=== PATIENT | male | born 1950 | race Caucasian/White ===

== ENCOUNTER 2017-02-01 08:34 | Emergency (ER) | payer OTHER ==
[2017-02-01] MEDS ORDERED: DIPH,PERTUS(ACELL)TETVAC-LF 0.5 ML VIAL IM ONE (08:43)
[2017-02-01] MEDS ORDERED: HYDROcodone/APAP 10-325MG 1 EACH TAB PO ONE (08:46)
[2017-02-01] MEDS ORDERED: ceFAZolin 1,000 MG VIAL IM STA (08:47)
--- NOTE | 2017-02-01 08:49 | ED ---
Wound/Laceration HPI - General Chief Complaint: Wound/Laceration Stated Complaint: laceration left hand Time Seen by Provider: 02/01/17 08:41 Source: patient, RN notes reviewed, old records reviewed Mode of arrival: ambulatory Limitations: no limitations - History of Present Illness Initial Comments: Is a 66-year-old male with chief complaint of laceration over his left second and third distal finger. Patient reports that he cut it on a table saw. Patient reports the second finger as above in evidence of involvement of the nailbed. Patient reports that the third finger just has the pad of the finger cut. Patient reports that he does not know the status of his tetanus vaccine. Denies any decreased range of motion of the fingers but has severe pain in his fingertips. Patient denies any recent fever, chills, shortness of breath, chest pain, back pain, abdominal pain, nausea vomiting, numbness or tingling, dysuria or hematuria, constipation or diarrhea, headaches or visual changes, or any other current symptoms - Related Data Home Medications Medication Instructions Recorded Confirmed Finasteride [Proscar] 5 mg PO DAILY 02/01/17 02/01/17 Vits A,C,E/Lutein/Minerals 1 tab PO DAILY 02/01/17 02/01/17 [Ocuvite with Lutein Tablet] Previous Rx's Medication Instructions Recorded Cephalexin [Keflex] 500 mg PO Q6H #40 cap 02/01/17 HYDROcodone/APAP 10-325MG [[facility] 1 tab PO Q6H PRN #20 tab 02/01/17 10-325] Allergies Allergy/AdvReac Type Severity Reaction Status Date / Time No Known Allergies Allergy Verified 02/01/17 09:30 Review of Systems ROS Statement: Those systems with pertinent positive or pertinent negative responses have been documented in the HPI. ROS Other: All systems not noted in ROS Statement are negative. Past Medical History Past Medical History: Prostate Disorder History of Any Multi-Drug Resistant Organisms: None Reported Past Surgical History: Orthopedic Surgery Additional Past Surgical History / Comment(s): Back surgery Past Psychological History: No Psychological Hx Reported Smoking Status: Never smoker Past Alcohol Use History: None Reported Past Drug Use History: None Reported General Exam - General Exam Comments Initial Comments: This is a 66-year-old male. No acute distress. Limitations: no limitations General appearance: alert, in no apparent distress Head exam: Present: atraumatic, normocephalic, normal inspection Eye exam: Present: normal appearance, PERRL, EOMI. Absent: scleral icterus, conjunctival injection, periorbital swelling ENT exam: Present: normal exam, mucous membranes moist Neck exam: Present: normal inspection. Absent: tenderness, meningismus, lymphadenopathy Respiratory exam: Present: normal lung sounds bilaterally. Absent: respiratory distress, wheezes, rales, rhonchi, stridor Cardiovascular Exam: Present: regular rate, normal rhythm, normal heart sounds. Absent: systolic murmur, diastolic murmur, rubs, gallop, clicks GI/Abdominal exam: Present: soft, normal bowel sounds. Absent: distended, tenderness, guarding, rebound, rigid Extremities exam: Present: full ROM, normal capillary refill. Absent: normal inspection, tenderness, pedal edema, joint swelling, calf tenderness Left Hand Wrist exam: Present: laceration (Laceration over the second and third fingertips. Second finger does have evidence of nail bed involvement. Third finger has a laceration over the finger pad. Nail bed is intact.). Absent: normal inspection Hand L/R Front: 1 - laceration (2 cm laceration) Hand L/R Back: 1 - 2cm laceration Neuro motor exam: Present: wrist extension intact, thumb opposition intact, thumb IP flexion intact, thumb adduction intact, fingers 2-5 abduction intact Vascular: Present: normal capillary refill Back exam: Present: normal inspection Neurological exam: Present: alert, oriented X3, CN II-XII intact Psychiatric exam: Present: normal affect, normal mood Course Vital Signs 02/01/17 02/01/17 08:34 10:40 Temperature 97.0 F L 97.8 F Pulse Rate 75 78 Respiratory 20 16 Rate Blood Pressure 176/83 137/70 O2 Sat by Pulse 96 98 Oximetry Procedures - Laceration Laceration #1 Site: hand (2nd digit) Size (cm): 4 Description: flap Depth: involves muscle layer Anesthetic Used: lidocaine 1% Anesthesia Technique: nerve block Amount (mls): 5 Pre-repair: wound explored, irrigated extensively Type of Sutures: nylon Size of Sutures: 5-0 Number of Sutures: 10 Technique: simple, interrupted Patient Tolerated Procedure: well, no complications Medical Decision Making - Medical Decision Making This 66-year-old male chief complaint of left second and third finger laceration after his hand was caught in a table saw. Open left second digit fracture, Comminuted overall nondisplaced fracture of the distal tuft with of the third digit overlying soft tissue swelling multiple high-density fragments which are related to comminuted osseous fragments of foreign bodies. Patient is given sutures through both the second and third digits. There is evidence of nail bed involvement, however patient did not have the nail bed removed. Discussed this could lead to further infection however patient continued to adamantly wants the nailbed. Discussed that he is follow-up with orthopedic hand surgeon. Patient will be started on Keflex as well. Up-to- date on tetanus vaccination. Discussed close return parameters. - Radiology Data Radiology results: report reviewed Absence of the distal soft tissues and second digit. Overlying soft tissue swelling. Absence of radial volar aspect of the distal second tuft with multiple fragments that may relate osseous comminuted fragments or foreign body. Comminuted overall not listless fracture distal tuft of the third digit with overlying soft tissue swelling and multiple high-density fragments which may relate to a comminuted osseous fragments or foreign bodies. Mild osteoarthritic of the left hand. Disposition Clinical Impression: Fracture of distal phalanx of finger, open Disposition: HOME SELF-CARE Condition: Good Instructions: Finger Fracture (ED) Additional Instructions: Advised to follow-up with orthopedic hand specialist within the next 1-2 days. Patient needs to keep the gauze dressing on until seen by shredding specialist. Return to the emergency department if any alarming signs or symptoms occur. Take your pain medication and antibiotics as directed. Prescriptions: Cephalexin [Keflex] 500 mg PO Q6H #40 cap HYDROcodone/APAP 10-325MG [[facility] 10-325] 1 tab PO Q6H PRN #20 tab PRN Reason: Pain Referrals: None,Stated [Primary Care Provider] - 1-2 days Heithoff,Reece J, DO [Doctor of Osteopathic Medicine] - 1-2 days Time of Disposition: 10:33
--- NOTE | 2017-02-01 09:11 | XR ---
EXAMINATION TYPE: XR hand complete LT DATE OF EXAM: 02/01/2017 CLINICAL HISTORY: Laceration to the distal second and third finger from a table saw TECHNIQUE: Frontal, lateral and oblique images of the left hand are obtained. COMPARISON: None. FINDINGS: Soft tissue lacerations of the distal second and third fingers are appreciated with associa gerardo soft tissue swelling and subcutis emphysema. Additionally there is absence of the distal soft tis sues and volar, radial aspect of the second tuft with comminuted fragments remaining. Fracture deform ity of the distal third tuft is seen, which is overall nondisplaced. Radiopaque foreign body is diffi cult to evaluate as there are multiple high-density fragments surrounding the daisy which may relate to osseous fragments are foreign bodies. Mild joint space narrowing and sclerosis is seen at the firs t metacarpal phalangeal joint as well as the distal interphalangeal joints compatible with mild arthr opathy. No additional fracture. IMPRESSION: 1. Absence of the distal soft tissues of the second digit, overlying soft tissue swelling, and absenc e of the radial and volar aspect of the distal second tuft with multiple fragments that may relate to osseous comminuted fragments or foreign body. 2. Comminuted overall nondisplaced fracture of the distal tuft of the third digit with overlying soft tissue swelling and multiple high-density fragments which may relate to comminuted osseous fragments or foreign bodies. 3. Mild osteoarthritic of the of the left hand.
[2017-02-01] MEDS ORDERED: GELATIN SPONGE,ABSORB (SMALL) 1 EACH SPONGE TOPICAL STA (09:49)
[2017-02-01] MEDS ORDERED: LORazepam 1 MG TAB PO STA (09:49)
[2017-02-01 10:42] VITALS: BP 137/70; PULSE 78; RESP 16; TEMP 97.8
== END 2017-02-01 10:40 | disposition home or self-care (01) ==
LOC: EC 08:34
DX: S62.663B Nondisplaced fracture of distal phalanx of left middle finger, initial encounter for open fracture (principal); S62.661B Nondisplaced fracture of distal phalanx of left index finger, initial encounter for open fracture; Z79.890 Hormone replacement therapy; Z98.890 Other specified postprocedural states; Z23 Encounter for immunization; W31.2XXA Contact with powered woodworking and forming machines, initial encounter
CPT/HCPCS: 73130; 90715; 99283; 96372; 90471; J0690

== ENCOUNTER 2017-05-27 13:48 | Observation (INO) | payer OTHER ==
[2017-05-27] MEDS ORDERED: SODIUM CHLORIDE 0.9% 1,000 ML IV STA (13:54)
[2017-05-27] MEDS ORDERED: ASPIRIN 81 MG PO STA (13:54)
[2017-05-27] MEDS ORDERED: NITROGLYCERIN SL TABS 0.4 MG TAB SUBLINGUAL PRN (13:54)
[2017-05-27] MEDS ORDERED: MORPHINE SULFATE 5 MG/ML SYRINGE IV STA (13:54)
--- NOTE | 2017-05-27 14:05 | ED ---
General Adult HPI - General Chief complaint: Chest Pain Stated complaint: Chest pressure Time Seen by Provider: 05/27/17 13:54 Source: patient, RN notes reviewed, old records reviewed Mode of arrival: wheelchair Limitations: no limitations - History of Present Illness Initial comments: This is a 66-year-old male to the ER for evaluation today. Patient is denying any evaluation in regards to chest pain. Patient does have positive history of heart disease cardiovascular chest pain spasm rating to left shoulder and down across her chest. No diaphoresis no shortness of breath. Patient was just discharged yesterday. No fevers cough or congestion - Related Data Home Medications Medication Instructions Recorded Confirmed Finasteride [Proscar] 5 mg PO DAILY 02/01/17 05/27/17 Lutein 20 mg PO DAILY 05/24/17 05/27/17 Aspirin EC [Ecotrin] 325 mg PO DAILY 05/28/17 05/28/17 Atorvastatin Calcium [Lipitor] 80 mg PO DAILY 05/28/17 05/28/17 Metoprolol Tartrate [Lopressor] 25 mg PO BID 05/28/17 05/28/17 Nitroglycerin Sl Tabs [Nitrostat] 0.4 mg SL CONTINUOUS PRN 05/28/17 05/28/17 Prasugrel [Effient] 10 mg PO Q24HR 05/28/17 05/28/17 Allergies Allergy/AdvReac Type Severity Reaction Status Date / Time No Known Allergies Allergy Verified 05/27/17 13:59 Review of Systems ROS Statement: Those systems with pertinent positive or pertinent negative responses have been documented in the HPI. ROS Other: All systems not noted in ROS Statement are negative. Past Medical History Past Medical History: Cancer, Eye Disorder, Myocardial Infarction ([place]), Prostate Disorder Additional Past Medical History / Comment(s): Basal cell skin cancer with removals, beginnings of bilateral macular degeneration, occasional vertigo, lactose intolerant, R inguinal pain when lying flat. History of Any Multi-Drug Resistant Organisms: None Reported Past Surgical History: Heart Catheterization With Stent, Orthopedic Surgery Additional Past Surgical History / Comment(s): Lumbar spine surgery, colonoscopy /benign polypectomy, R inguinal hernia repair, skin cancer removals. Past Anesthesia/Blood Transfusion Reactions: No Reported Reaction Past Psychological History: No Psychological Hx Reported Smoking Status: Never smoker - Past Family History Mother Family Medical History: No Reported History Additional Family Medical History / Comment(s): Mother is healthy and 90yrs old. Father Additional Family Medical History / Comment(s): Father around age 55-65 with ruptured brain aneurysm. General Exam Limitations: no limitations General appearance: alert, in no apparent distress Head exam: Present: atraumatic, normocephalic, normal inspection Eye exam: Present: normal appearance, PERRL, EOMI. Absent: scleral icterus, conjunctival injection, periorbital swelling ENT exam: Present: normal exam, mucous membranes moist Neck exam: Present: normal inspection. Absent: tenderness, meningismus, lymphadenopathy Respiratory exam: Present: normal lung sounds bilaterally. Absent: respiratory distress, wheezes, rales, rhonchi, stridor Cardiovascular Exam: Present: regular rate, normal rhythm, normal heart sounds. Absent: systolic murmur, diastolic murmur, rubs, gallop, clicks GI/Abdominal exam: Present: soft, normal bowel sounds. Absent: distended, tenderness, guarding, rebound, rigid Extremities exam: Present: normal inspection, full ROM, normal capillary refill. Absent: tenderness, pedal edema, joint swelling, calf tenderness Back exam: Present: normal inspection Neurological exam: Present: alert, oriented X3, CN II-XII intact Psychiatric exam: Present: normal affect, normal mood Skin exam: Present: warm, dry, intact, normal color. Absent: rash Course Vital Signs 05/27/17 05/27/17 05/27/17 13:50 14:16 15:04 Temperature 97.3 F L Pulse Rate 59 L 55 L 50 L Respiratory 18 18 18 Rate Blood Pressure 123/67 137/86 126/74 O2 Sat by Pulse 99 98 97 Oximetry 05/27/17 15:50 Temperature 97.9 F Pulse Rate 55 L Respiratory 18 Rate Blood Pressure 154/93 O2 Sat by Pulse 98 Oximetry - Reevaluation(s) Reevaluation #1: 05/27/17 15:57 Patient states he has no significant pain Reevaluation #2: 05/27/17 15:57 Patient discussed at length pros and cons of staying hospital course going home , patient is informed, able to make decision, I'll alert and oriented 3. EKG Findings - EKG Comments: EKG Findings:: EKG shows normal sinus rhythm rate of 60, ME 170, QRS 96, QTc 422 Medical Decision Making - Medical Decision Making 66 male to the ER with recurrent chest pain after recent AR with stent. At this point patient states that he doesn't want to stay nostril for computed tenet evaluation. Patient be admitted for cardiac observation, monitoring and serial troponins - Lab Data Result diagrams: 05/28/17 05:53 05/28/17 05:53 - Radiology Data Radiology results: report reviewed (Chest x-ray is negative), image reviewed Critical Care Time Critical Care Time: Yes Total Critical Care Time: 31 Disposition Clinical Impression: Chest pain, NSTEMI (non-ST elevated myocardial infarction) Disposition: ADMITTED IP TO THIS HOSP Condition: Fair
[2017-05-27 14:30] LABS: Basophils # (A) 0.1 k/uL (0-0.2); Basophils % (A) 1 %; CH 28.9; CHCM 32.9; Eosinophils # (A) 0.3 k/uL (0-0.7); Eosinophils % (A) 2 %; HDW 2.58; HGB 15.3 gm/dL (13.0-17.5); Luc # (Auto) 0.16; Luc % (Auto) 2; Lymphocytes # (A) 2.3 k/uL (1.0-4.8); Lymphocytes % (A) 21 %; MCH 28.7 pg (25.0-35.0); MCHC 32.5 g/dL (31.0-37.0); MCV 88.3 fL (80.0-100.0); Mean Platelet Volume 10.1; Monocytes # (A) 0.7 k/uL (0-1.0); Monocytes % (A) 6 %; Neutrophils # (A) 7.2 k/uL (1.3-7.7); Neutrophils % (A) 68 %; RBC 5.32 m/uL (4.30-5.90); RDW 14.7 % (11.5-15.5); WBC 10.6 k/uL (3.8-10.6); WBC (Perox) 10.49
--- NOTE | 2017-05-27 14:46 | XR ---
EXAMINATION TYPE: XR chest 2V DATE OF EXAM: 05/27/2017 COMPARISON: May 24, 2017 HISTORY: Chest pain TECHNIQUE: Frontal and lateral views of the chest are obtained. FINDINGS: There is no focal air space opacity, pleural effusion, or pneumothorax seen. The cardiac silhouette size is within normal limits. The osseous structures are intact. IMPRESSION: No acute cardiopulmonary process.
[2017-05-27 14:53] LABS: ALT 37 U/L (21-72); AST 93 U/L (17-59); Alkaline Phosphatase 78 U/L (38-126); Anion Gap 11 mmol/L; Blood Urea Nitrogen 19 mg/dL (9-20); Calcium 9.4 mg/dL (8.4-10.2); Carbon Dioxide 24 mmol/L (22-30); Chloride 104 mmol/L (98-107); Glucose 108 mg/dL (74-99); Magnesium 2.2 mg/dL (1.6-2.3); Non-African American GFR(MDRD) >60 (>60 ml/min/1.73 sqM); Sodium 139 mmol/L (137-145); Total Bilirubin 1.3 mg/dL (0.2-1.3); Total Protein 7.8 g/dL (6.3-8.2)
[2017-05-27 14:56] LABS: Potassium 6.3 mmol/L (3.5-5.1)
[2017-05-27 15:10] LABS: Prothrombin Time 10.1 sec (9.0-12.0)
[2017-05-27 15:19] LABS: Creatine Kinase MB 1.1 ng/mL (0.0-2.4)
[2017-05-27 15:20] LABS: Troponin I 4.89 ng/mL (0.000-0.034)
[2017-05-27] MEDS ORDERED: SODIUM POLYSTYRENE SULFONATE 15 GM/60 ML BOTTLE PO STA (15:38)
[2017-05-27 18:25] VITALS: RESP 16; BMI 21.5
[2017-05-27] MEDS: METOPROLOL TARTRATE 25 MG TAB PO SCH (20:09)
[2017-05-27 21:09] LABS: Troponin I 4.6 ng/mL (0.000-0.034)
[2017-05-28 03:19] LABS: Cholesterol 208 mg/dL (<200); HDL Cholesterol 36 mg/dL (40-60)
[2017-05-28 03:35] LABS: Creatine Kinase MB 0.8 ng/mL (0.0-2.4)
[2017-05-28 03:36] LABS: Troponin I 5.59 ng/mL (0.000-0.034)
[2017-05-28 06:32] LABS: Basophils # (A) 0.1 k/uL (0-0.2); Basophils % (A) 1 %; CH 29.3; CHCM 33.9; Eosinophils # (A) 0.2 k/uL (0-0.7); Eosinophils % (A) 2 %; HCT 42.7 % (39.0-53.0); HDW 2.79; HGB 14.1 gm/dL (13.0-17.5); Luc # (Auto) 0.14; Luc % (Auto) 2; Lymphocytes # (A) 1.9 k/uL (1.0-4.8); Lymphocytes % (A) 20 %; MCH 28.6 pg (25.0-35.0); MCHC 32.9 g/dL (31.0-37.0); MCV 86.9 fL (80.0-100.0); Mean Platelet Volume 9.3; Monocytes # (A) 0.5 k/uL (0-1.0); Monocytes % (A) 5 %; Neutrophils # (A) 6.9 k/uL (1.3-7.7); Neutrophils % (A) 71 %; RBC 4.91 m/uL (4.30-5.90); RDW 12.9 % (11.5-15.5); WBC 9.7 k/uL (3.8-10.6); WBC (Perox) 9.92
[2017-05-28 06:43] LABS: Anion Gap 8 mmol/L; Blood Urea Nitrogen 16 mg/dL (9-20); Carbon Dioxide 26 mmol/L (22-30); Chloride 109 mmol/L (98-107); Glucose 90 mg/dL (74-99); Non-African American GFR(MDRD) >60 (>60 ml/min/1.73 sqM); Potassium 4.3 mmol/L (3.5-5.1); Sodium 143 mmol/L (137-145)
[2017-05-28] MEDS: METOPROLOL TARTRATE 25 MG TAB PO SCH (08:43)
[2017-05-28] MEDS ORDERED: PRASUGREL 10 MG TAB PO SCH (09:00)
[2017-05-28] MEDS ORDERED: ASPIRIN 325 MG TAB PO SCH (09:00)
[2017-05-28] MEDS ORDERED: ATORVASTATIN 80 MG TAB PO SCH (09:00)
[2017-05-28] MEDS ORDERED: FINASTERIDE 5 MG TAB PO SCH (09:00)
[2017-05-28] MEDS ORDERED: ASPIRIN 81 MG PO SCH (09:00)
[2017-05-28] MEDS ORDERED: VIT A,C & E-LUTEIN-MINERALS 1 EACH TAB PO SCH (12:00)
--- NOTE | 2017-05-28 13:21 | P.HPIM ---
History of Present Illness H&P Date: 05/28/17 Chief Complaint: Chest pain This is a 66-year-old gentleman with past medical history noted below who was recently discharged from the hospital couple of days ago after being treated for non-ST elevation [place] and underwent left heart catheterization and stent placement to the circumflex. Patient said that he was doing well up until yesterday when he started having chest discomfort in the left chest. He said that the pain was nonexertional. He was in the left chest and going to the middle chest. No other radiation. He rated as 5 out of 10 in severity. This pain was not associated with shortness of breath, dizziness, or diaphoresis. Patient presented to the emergency room and 12-lead EKG showed no acute ischemic changes. Troponin was elevated but was significantly lower than his last troponin 2 days ago upon discharge. Patient chest pain resolved. He was seen and evaluated by cardiology. His pain was thought to be atypical in nature. No further testing recommended. Patient was cleared by cardiology to be discharged home. We will continue medical management. Please refer to the discharge medication list for further details. Review of Systems Review of system: 14 points review of systems were obtained and were negative except to what were mentioned in the HPI. Past Medical History Past Medical History: Cancer, Eye Disorder, Myocardial Infarction ([place]), Prostate Disorder Additional Past Medical History / Comment(s): Basal cell skin cancer with removals, beginnings of bilateral macular degeneration, occasional vertigo, lactose intolerant, R inguinal pain when lying flat. Last Myocardial Infarction Date:: 05-24 History of Any Multi-Drug Resistant Organisms: None Reported Past Surgical History: Heart Catheterization With Stent, Orthopedic Surgery Additional Past Surgical History / Comment(s): Lumbar spine surgery, colonoscopy /benign polypectomy, R inguinal hernia repair, skin cancer removals. Past Anesthesia/Blood Transfusion Reactions: No Reported Reaction Date of Last Stent Placement:: 05-24 Past Psychological History: No Psychological Hx Reported Additional Psychological History / Comment(s): Pt resides with significant other , Angeline. He is independent. Smoking Status: Never smoker Past Alcohol Use History: Rare Past Drug Use History: None Reported - Past Family History Mother Family Medical History: No Reported History Additional Family Medical History / Comment(s): Mother is healthy and 90yrs old. Father Additional Family Medical History / Comment(s): Father around age 55-65 with ruptured brain aneurysm. Medications and Allergies Home Medications Medication Instructions Recorded Confirmed Type Finasteride [Proscar] 5 mg PO DAILY 02/01/17 05/27/17 History Lutein 20 mg PO DAILY 05/24/17 05/27/17 History Aspirin EC [Ecotrin] 325 mg PO DAILY 05/28/17 05/28/17 History Atorvastatin Calcium [Lipitor] 80 mg PO DAILY 05/28/17 05/28/17 History Metoprolol Tartrate [Lopressor] 25 mg PO BID 05/28/17 05/28/17 History Nitroglycerin Sl Tabs [Nitrostat] 0.4 mg SL CONTINUOUS PRN 05/28/17 05/28/17 History Prasugrel [Effient] 10 mg PO Q24HR 05/28/17 05/28/17 History Allergies Allergy/AdvReac Type Severity Reaction Status Date / Time No Known Allergies Allergy Verified 05/27/17 13:59 Physical Exam Vitals: Vital Signs Temp Pulse Pulse Resp BP BP Pulse Ox 05/28/17 08:04 96 05/28/17 08:00 54 L 16 05/28/17 07:56 97 F L 54 L 16 124/76 98 05/28/17 04:00 97.6 F 57 L 16 117/70 96 05/28/17 00:00 97.9 F 53 L 16 129/73 99 05/27/17 20:00 97.7 F 53 L 16 126/69 96 05/27/17 16:39 97.8 F 60 16 122/77 98 05/27/17 15:50 97.9 F 55 L 18 154/93 98 05/27/17 15:04 50 L 18 126/74 97 05/27/17 14:16 55 L 18 137/86 98 05/27/17 13:50 97.3 F L 59 L 18 123/67 99 Intake and Output 05/27/17 05/28/17 05/28/17 22:59 06:59 14:59 Intake Total 240 800 Output Total 250 Balance 240 800 -250 Intake: Intake, IV Titration 800 Amount Sodium Chloride 0.9% 1, 800 000 ml @ 100 mls/hr IV . Q10H STA Rx#:[id number] Oral 240 Output: Urine 250 Other: Voiding Method Toilet Toilet Toilet Urinal Urinal Urinal Weight 72 kg 72.4 kg General: The patient is awake and alert, in no distress Eye: there is normal conjunctiva bilaterally. Neck: The neck is supple, there is no JVD. Cardiovascular: Normal S1-S2, no S3-S4, no murmurs. Respiratory: Lungs clear to auscultation bilaterally Gastrointestinal: Abdomen is soft, nontender Musculoskeletal: There is no pedal edema. Neurological:. Speech is normal. Skin: Skin is warm and dry Results CBC & Chem 7: 05/28/17 05:53 05/28/17 05:53 Labs: Abnormal Lab Results - Last 24 Hours (Table) 05/27/17 05/27/17 05/27/17 Range/Units 14:09 14:09 14:09 Plt Count (150-450) k/uL APTT 21.0 L (22.0-30.0) sec Potassium 6.3 H* (3.5-5.1) mmol/L Chloride (98-107) mmol/L Glucose 108 H (74-99) mg/dL AST 93 H (17-59) U/L Troponin I 4.890 H* (0.000-0.034) ng/mL Triglycerides (<150) mg/dL Cholesterol (<200) mg/dL LDL Cholesterol, Calc (0-99) mg/dL HDL Cholesterol (40-60) mg/dL 05/27/17 05/28/17 05/28/17 Range/Units 19:57 02:42 02:42 Plt Count (150-450) k/uL APTT (22.0-30.0) sec Potassium (3.5-5.1) mmol/L Chloride (98-107) mmol/L Glucose (74-99) mg/dL AST (17-59) U/L Troponin I 4.600 H* 5.590 H* (0.000-0.034) ng/mL Triglycerides 166 H (<150) mg/dL Cholesterol 208 H (<200) mg/dL LDL Cholesterol, Calc 139 H (0-99) mg/dL HDL Cholesterol 36 L (40-60) mg/dL 05/28/17 05/28/17 05/28/17 Range/Units 05:53 05:53 10:32 Plt Count 148 L (150-450) k/uL APTT (22.0-30.0) sec Potassium (3.5-5.1) mmol/L Chloride 109 H (98-107) mmol/L Glucose (74-99) mg/dL AST (17-59) U/L Troponin I 3.270 H* (0.000-0.034) ng/mL Triglycerides (<150) mg/dL Cholesterol (<200) mg/dL LDL Cholesterol, Calc (0-99) mg/dL HDL Cholesterol (40-60) mg/dL Thrombosis Risk Factor Assmnt - Choose All That Apply Any of the Below Risk Factors Present?: Yes Other Risk Factors: Yes Each Risk Factor Represents 2 Points: Age 61-74 years Thrombosis Risk Factor Assessment Total Risk Factor Score: 2 Thrombosis Risk Factor Assessment Level: Low Risk Assessment and Plan Assessment: This is a 66-year-old gentleman with past medical history noted below who was recently discharged from the hospital couple of days ago after being treated for non-ST elevation [place] and underwent left heart catheterization and stent placement to the circumflex. Patient said that he was doing well up until yesterday when he started having chest discomfort in the left chest. He said that the pain was nonexertional. He was in the left chest and going to the middle chest. No other radiation. He rated as 5 out of 10 in severity. This pain was not associated with shortness of breath, dizziness, or diaphoresis. Patient presented to the emergency room and 12-lead EKG showed no acute ischemic changes. Troponin was elevated but was significantly lower than his last troponin 2 days ago upon discharge. Patient chest pain resolved. He was seen and evaluated by cardiology. His pain was thought to be atypical in nature. No further testing recommended. Patient was cleared by cardiology to be discharged home. We will continue medical management. Please refer to the discharge medication list for further details. 1. Recent non-ST elevation [place] 2. Atypical chest pain on this presentation cleared by cardiology for discharge 3. Coronary artery disease status post stent placement to the circumflex 4. Mixed hyperlipidemia maintained on Lipitor 80 mg at bedtime 5. Essential hypertension: Blood pressure well-controlled
--- NOTE | 2017-05-28 13:22 | P.DS ---
Providers Date of admission: 05/27/17 13:54 Expected date of discharge: 05/28/17 Attending physician: Geneva Rader Consults: 05/27/17 13:54 Consult Physician Urgent Consulting Provider: Trevor Morrison Consult Reason/Comments: cp Do you want consulting provider notified?: Yes Primary care physician: [facility] Course: This is a 66-year-old gentleman with past medical history noted below who was recently discharged from the hospital couple of days ago after being treated for non-ST elevation [place] and underwent left heart catheterization and stent placement to the circumflex. Patient said that he was doing well up until yesterday when he started having chest discomfort in the left chest. He said that the pain was nonexertional. He was in the left chest and going to the middle chest. No other radiation. He rated as 5 out of 10 in severity. This pain was not associated with shortness of breath, dizziness, or diaphoresis. Patient presented to the emergency room and 12-lead EKG showed no acute ischemic changes. Troponin was elevated but was significantly lower than his last troponin 2 days ago upon discharge. Patient chest pain resolved. He was seen and evaluated by cardiology. His pain was thought to be atypical in nature. No further testing recommended. Patient was cleared by cardiology to be discharged home. We will continue medical management. Please refer to the discharge medication list for further details. Patient Condition at Discharge: Fair Plan - Discharge Summary Discharge Rx Participant: No New Discharge Prescriptions: No Action Finasteride [Proscar] 5 mg PO DAILY Lutein 20 mg PO DAILY Metoprolol Tartrate [Lopressor] 25 mg PO BID Prasugrel [Effient] 10 mg PO Q24HR Nitroglycerin Sl Tabs [Nitrostat] 0.4 mg SL CONTINUOUS PRN PRN Reason: Chest Pain Atorvastatin Calcium [Lipitor] 80 mg PO DAILY Aspirin EC [Ecotrin] 325 mg PO DAILY Discharge Medication List Finasteride [Proscar] 5 mg PO DAILY 02/01/17 [History] Lutein 20 mg PO DAILY 05/24/17 [History] Aspirin EC [Ecotrin] 325 mg PO DAILY 05/28/17 [History] Atorvastatin Calcium [Lipitor] 80 mg PO DAILY 05/28/17 [History] Metoprolol Tartrate [Lopressor] 25 mg PO BID 05/28/17 [History] Nitroglycerin Sl Tabs [Nitrostat] 0.4 mg SL CONTINUOUS PRN 05/28/17 [History] Prasugrel [Effient] 10 mg PO Q24HR 05/28/17 [History] Follow up Appointment(s)/Referral(s): Fransisco Shah MD [Primary Care Provider] - 1-2 days Discharge Disposition: HOME SELF-CARE
[2017-05-28 13:39] VITALS: BP 131/64; PULSE 53; TEMP 98.3
--- NOTE | 2017-05-28 18:13 | CONS ---
CONSULTATION This is a 66-year-old gentleman who presented with a non-ST elevation ID about 5 days ago. He underwent stenting of a mid circumflex lesion which was a fairly tight stenosis. He also has a moderate disease in mid and distal LAD and LAD is a wrap- around vessel that supplies the inferior wall as well. The first obtuse marginal was also stenosed but was advised but he was advised that we would pursue management with medical therapy for this. Mid circumflex had an excellent angiographic result and the procedure was performed on the of this month. Upon his presentation to the hospital, his peak troponin was about 34. Postprocedure course was uneventful. He went home and he yesterday he went to the [employer] to get a pill box, had some sharp pain in the left lateral aspect of the chest, felt a bit concerned. Pain was very atypical. Took 3 nitros, felt queasy, clammy, and abdominal discomfort and came into the hospital. It appears the pain was atypical and sublingual nitroglycerin may have contributed to his symptoms of lightheadedness and clammy feeling. His troponin profile suggests that there is no significant re-elevation. The troponin is in the range of 5. but this is still within the 10 day window suggesting that the numbers are actually coming down overall. Patient has not had any further symptoms, is resting comfortably without symptoms. I reviewed his angiograms and I noted that the LAD lesion is not critical and no immediate intervention is necessary. His circumflex results were excellent. The RCA is not a significant vessel. PAST MEDICAL HISTORY: 1. Recent hospitalization for non ST elevation ID and stenting of circumflex. 2. History of benign prostatic hypertrophy. 3. Hypertension. 4. Hyperlipidemia. ALLERGIES: None. MEDICATIONS: At home include aspirin 325 mg daily, Effient 10 mg daily, atorvastatin 80 mg daily, Proscar 5 mg daily, sublingual nitroglycerin p.r.n. EXAMINATION: Pressure is 124/70, pulse rate is 60 per minute regular. HEENT unremarkable. Fundus was not examined by me. NECK: Supple. No JVD. I do not hear a carotid bruit. There is no thyromegaly. Heart exam reveals S1, S2 heard normally. No significant murmurs. Lungs are clear. ABDOMEN: Soft, nontender. Lower extremities reveal normal pulses. No edema. Central nervous system is normal. EKG revealed a sinus mechanism with evidence off left anterior fascicular block type picture, inferior ID cannot be excluded. No acute changes. Troponin profile suggests that the enzymes are pretty much on a downward trend with 1 aberration. IMPRESSION: 1. Atypical chest pain in a patient with recent non ST elevation myocardial infarction and this presentation is not suggestive of non-ST elevation myocardial infarction. 2. Hyperlipidemia. RECOMMENDATION: I am recommending that we increase activity perform additional troponin and EKG and if these are normal, he can be discharged and he will follow up with Dr. Quiñonez in the office in next 1 week. I advised the patient to take nitroglycerin only if he has heaviness and pressure in the chest rather than sharp pains lasting a few seconds on the lateral aspect of the chest that he had when he came in. Discussed my thoughts in detail with the patient and his . MMCHANELL / MILYN: [id number] /
== END 2017-05-28 15:54 | disposition home or self-care (01) ==
LOC: EC 13:48 → INTOOBSV 13:54 → 6SEL 13:54 → UNDODISIN 05-28 15:54
PROVIDERS: ADMIT Internal Medicine; ATTEND Internal Medicine
DX: R07.89 Other chest pain (principal); I21.4 Non-ST elevation (NSTEMI) myocardial infarction; E78.2 Mixed hyperlipidemia; H35.30 Unspecified macular degeneration; I10 Essential (primary) hypertension; N40.0 Benign prostatic hyperplasia without lower urinary tract symptoms; I25.10 Atherosclerotic heart disease of native coronary artery without angina pectoris; I25.2 Old myocardial infarction; Z79.82 Long term (current) use of aspirin; Z79.02 Long term (current) use of antithrombotics/antiplatelets; Z79.899 Other long term (current) drug therapy; Z95.5 Presence of coronary angioplasty implant and graft; Z85.828 Personal history of other malignant neoplasm of skin; Z86.010 Personal history of colon polyps
CPT/HCPCS: 96361 ×3; 96360; 99285; 36415; 94760; 83880; 80061; 80053; 80048; 82550 ×2; 82553 ×2; 83735; 84484 ×2; 85025 ×2; 85610; 85730; 71020; G0378 ×2; S0138; 93005

== ENCOUNTER 2017-08-31 23:39 | Observation (INO) | payer OTHER ==
[2017-09-01] MEDS ORDERED: NITROGLYCERIN OINT 1 INCH/GM PACKET TOPICAL STA (00:16)
[2017-09-01] MEDS ORDERED: ASPIRIN 81 MG PO STA (00:16)
[2017-09-01 00:39] LABS: HCT 42.5 % (39.0-53.0); HGB 14.7 gm/dL (13.0-17.5); MCH 29.3 pg (25.0-35.0); MCHC 34.5 g/dL (31.0-37.0); MCV 84.8 fL (80.0-100.0); Mean Platelet Volume 10.1; Platelet Count 124 k/uL (150-450); RBC 5.01 m/uL (4.30-5.90); RDW 13.1 % (11.5-15.5); WBC 9.8 k/uL (3.8-10.6)
[2017-09-01 00:45] LABS: INR 1.1 (<1.2); Partial Thromboplastin Time 23.2 sec (22.0-30.0); Prothrombin Time 10.4 sec (9.0-12.0)
--- NOTE | 2017-09-01 00:45 | ED ---
General Adult HPI - General Chief complaint: Chest Pain Stated complaint: chest pain Time Seen by Provider: 08/31/17 23:55 Source: patient, family, RN notes reviewed Mode of arrival: ambulatory Limitations: no limitations - History of Present Illness Initial comments: Patient is a pleasant [age]-year-old male presenting to the emergency Department with chest discomfort. Onset was one hour prior to arrival. Patient had a cool discomfort across his chest. Patient also had some palpitations. Symptoms are similar to myocardial infarction couple of months ago. Patient took 3 nitroglycerin with resolution of symptoms and remained symptom-free at this point. Patient states he was in therapy earlier this morning and did have some sweating at [place] however none with symptoms tonight. No associated dyspnea or nausea. - Related Data Home Medications Medication Instructions Recorded Confirmed Finasteride [Proscar] 5 mg PO DAILY 02/01/17 05/27/17 Lutein 20 mg PO DAILY 05/24/17 05/27/17 Aspirin EC [Ecotrin] 325 mg PO DAILY 05/28/17 05/28/17 Atorvastatin Calcium [Lipitor] 80 mg PO DAILY 05/28/17 05/28/17 Metoprolol Tartrate [Lopressor] 25 mg PO BID 05/28/17 05/28/17 Nitroglycerin Sl Tabs [Nitrostat] 0.4 mg SL CONTINUOUS PRN 05/28/17 05/28/17 Prasugrel [Effient] 10 mg PO Q24HR 05/28/17 05/28/17 Allergies Allergy/AdvReac Type Severity Reaction Status Date / Time No Known Allergies Allergy Verified 08/31/17 23:45 Review of Systems ROS Statement: Those systems with pertinent positive or pertinent negative responses have been documented in the HPI. ROS Other: All systems not noted in ROS Statement are negative. Constitutional: Denies: fever Eyes: Denies: eye pain ENT: Denies: ear pain Respiratory: Denies: cough Cardiovascular: Reports: chest pain, palpitations Endocrine: Denies: fatigue Gastrointestinal: Denies: abdominal pain Genitourinary: Denies: dysuria Musculoskeletal: Denies: back pain Skin: Denies: rash Neurological: Denies: weakness Past Medical History Past Medical History: Cancer, Eye Disorder, Myocardial Infarction ([place]), Prostate Disorder Additional Past Medical History / Comment(s): Basal cell skin cancer with removals, beginnings of bilateral macular degeneration, occasional vertigo, lactose intolerant, R inguinal pain when lying flat. Last Myocardial Infarction Date:: 05-24 History of Any Multi-Drug Resistant Organisms: None Reported Past Surgical History: Heart Catheterization With Stent, Orthopedic Surgery Additional Past Surgical History / Comment(s): Lumbar spine surgery, colonoscopy /benign polypectomy, R inguinal hernia repair, skin cancer removals. Past Anesthesia/Blood Transfusion Reactions: No Reported Reaction Date of Last Stent Placement:: - Past Psychological History: No Psychological Hx Reported Smoking Status: Never smoker Past Alcohol Use History: Rare Past Drug Use History: None Reported - Past Family History Mother Family Medical History: No Reported History Additional Family Medical History / Comment(s): Mother is healthy and 90yrs old. Father Additional Family Medical History / Comment(s): Father around age 55-65 with ruptured brain aneurysm. General Exam Limitations: no limitations General appearance: alert, in no apparent distress Head exam: Present: atraumatic Eye exam: Present: normal appearance Neck exam: Present: normal inspection Respiratory exam: Present: normal lung sounds bilaterally. Absent: chest wall tenderness Cardiovascular Exam: Present: normal rhythm, bradycardia Expanded Peripheral pulses: 2+: Radial (R), Radial (L), Dorsalis Pedis (R), Dorsalis Pedis (L) GI/Abdominal exam: Present: soft. Absent: tenderness Extremities exam: Present: normal inspection. Absent: pedal edema, calf tenderness Neurological exam: Present: alert Psychiatric exam: Present: normal affect, normal mood Skin exam: Present: normal color Course Vital Signs 08/31/17 09/01/17 23:42 00:27 Temperature 97.6 F Pulse Rate 51 L Pulse Rate [ 49 L Die Maker ] Respiratory 18 Rate Blood Pressure 130/75 O2 Sat by Pulse 95 Oximetry EKG Findings - EKG Comments: EKG Findings:: Sinus bradycardia 47. MA 170. QRS 96. QT 482. QTC 426. Left axis. Inferior Q waves. No acute ST change. Medical Decision Making - Medical Decision Making Patient reevaluated and resting comfortably in bed. Patient and family updated on results and plan. Case was discussed in detail with Dr. Rader, who will admit for Dr. Cheema. - Lab Data Result diagrams: 09/01/17 00:16 09/01/17 00:16 Lab Results 0309/01/17 09/01/17 Range/Units 00:16 00:16 00:16 WBC 9.8 (3.8-10.6) k/uL RBC 5.01 (4.30-5.90) m/uL Hgb 14.7 (13.0-17.5) gm/dL Hct 42.5 (39.0-53.0) % MCV 84.8 (80.0-100.0) fL MCH 29.3 (25.0-35.0) pg MCHC 34.5 (31.0-37.0) g/dL RDW 13.1 (11.5-15.5) % Plt Count 124 L (150-450) k/uL Neutrophils % (Manual) 68 % Lymphocytes % (Manual) 24 % Monocytes % (Manual) 5 % Eosinophils % (Manual) 3 % Neutrophils # (Manual) 6.66 (1.3-7.7) k/uL Lymphocytes # (Manual) 2.35 (1.0-4.8) k/uL Monocytes # (Manual) 0.49 (0-1.0) k/uL Eosinophils # (Manual) 0.29 (0-0.7) k/uL Nucleated RBCs 0 (0-0) /100 WBC Manual Slide Review Performed Large Platelets Present PT (9.0-12.0) sec INR (<1.2) APTT (22.0-30.0) sec Sodium 144 (137-145) mmol/L Potassium 4.0 (3.5-5.1) mmol/L Chloride 104 (98-107) mmol/L Carbon Dioxide 27 (22-30) mmol/L Anion Gap 13 mmol/L BUN 18 (9-20) mg/dL Creatinine 0.90 (0.66-1.25) mg/dL Est GFR (CKD-EPI)AfAm >90 (>60 ml/min/1.73 sqM) Est GFR (CKD-EPI)NonAf 90 (>60 ml/min/1.73 sqM) Glucose 98 (74-99) mg/dL Calcium 9.3 (8.4-10.2) mg/dL Magnesium 2.2 (1.6-2.3) mg/dL Total Bilirubin 0.5 (0.2-1.3) mg/dL AST 49 (17-59) U/L ALT 71 (21-72) U/L Alkaline Phosphatase 101 (38-126) U/L Total Creatine Kinase 62 (55-170) U/L CK-MB (CK-2) 1.2 (0.0-2.4) ng/mL CK-MB (CK-2) Rel Index 1.9 Troponin I <0.012 (0.000-0.034) ng/mL Total Protein 6.6 (6.3-8.2) g/dL Albumin 4.2 (3.5-5.0) g/dL 09/01/17 Range/Units 00:16 WBC (3.8-10.6) k/uL RBC (4.30-5.90) m/uL Hgb (13.0-17.5) gm/dL Hct (39.0-53.0) % MCV (80.0-100.0) fL MCH (25.0-35.0) pg MCHC (31.0-37.0) g/dL RDW (11.5-15.5) % Plt Count (150-450) k/uL Neutrophils % (Manual) % Lymphocytes % (Manual) % Monocytes % (Manual) % Eosinophils % (Manual) % Neutrophils # (Manual) (1.3-7.7) k/uL Lymphocytes # (Manual) (1.0-4.8) k/uL Monocytes # (Manual) (0-1.0) k/uL Eosinophils # (Manual) (0-0.7) k/uL Nucleated RBCs (0-0) /100 WBC Manual Slide Review Large Platelets PT 10.4 (9.0-12.0) sec INR 1.1 (<1.2) APTT 23.2 (22.0-30.0) sec Sodium (137-145) mmol/L Potassium (3.5-5.1) mmol/L Chloride (98-107) mmol/L Carbon Dioxide (22-30) mmol/L Anion Gap mmol/L BUN (9-20) mg/dL Creatinine (0.66-1.25) mg/dL Est GFR (CKD-EPI)AfAm (>60 ml/min/1.73 sqM) Est GFR (CKD-EPI)NonAf (>60 ml/min/1.73 sqM) Glucose (74-99) mg/dL Calcium (8.4-10.2) mg/dL Magnesium (1.6-2.3) mg/dL Total Bilirubin (0.2-1.3) mg/dL AST (17-59) U/L ALT (21-72) U/L Alkaline Phosphatase (38-126) U/L Total Creatine Kinase (55-170) U/L CK-MB (CK-2) (0.0-2.4) ng/mL CK-MB (CK-2) Rel Index Troponin I (0.000-0.034) ng/mL Total Protein (6.3-8.2) g/dL Albumin (3.5-5.0) g/dL - Radiology Data Radiology results: image reviewed (Chest x-ray shows no acute process.) Disposition Clinical Impression: Chest pain Disposition: ADMITTED IP TO THIS [facility] Referrals: Fransisco Shah MD [Primary Care Provider] - 1-2 days Decision Time: 01:37
[2017-09-01 00:48] LABS: ALT 71 U/L (21-72); AST 49 U/L (17-59); Albumin 4.2 g/dL (3.5-5.0); Alkaline Phosphatase 101 U/L (38-126); Anion Gap 13 mmol/L; Blood Urea Nitrogen 18 mg/dL (9-20); Calcium 9.3 mg/dL (8.4-10.2); Carbon Dioxide 27 mmol/L (22-30); Chloride 104 mmol/L (98-107); Glucose 98 mg/dL (74-99); Magnesium 2.2 mg/dL (1.6-2.3); Sodium 144 mmol/L (137-145); Total Bilirubin 0.5 mg/dL (0.2-1.3); Total Protein 6.6 g/dL (6.3-8.2)
[2017-09-01 01:00] LABS: Creatine Kinase 62 U/L (55-170)
[2017-09-01 01:05] LABS: Eosinophils # (M) 0.29 k/uL (0-0.7); Large Platelets Present; Lymphocytes # (M) 2.35 k/uL (1.0-4.8); Monocytes # (M) 0.49 k/uL (0-1.0); Neutrophils # (M) 6.66 k/uL (1.3-7.7); Neutrophils % (M) 68 %; Nucleated Red Blood Cells 0 /100 WBC (0-0); Total Cells Counted 100
[2017-09-01 01:13] LABS: Creatine Kinase MB 1.2 ng/mL (0.0-2.4); Troponin I <0.012 ng/mL (0.000-0.034)
--- NOTE | 2017-09-01 01:25 | XR ---
EXAMINATION TYPE: XR chest 2V DATE OF EXAM: 09/01/2017 COMPARISON: 05/27/2017 HISTORY: Chest pain TECHNIQUE: Frontal and lateral views of the chest are obtained. FINDINGS: There is no heart failure nor confluent pneumonic infiltrate. Costophrenic angles are meena r. There are chest leads. Heart size is normal. Bony thorax is intact. IMPRESSION: No active cardiopulmonary disease. No change.
[2017-09-01] MEDS ORDERED: NITROGLYCERIN SL TABS 0.4 MG TAB SUBLINGUAL PRN (01:37)
[2017-09-01 03:08] VITALS: BMI 22.1
[2017-09-01] MEDS: NITROGLYCERIN OINT 1 INCH/GM PACKET TOPICAL SCH ×2 (05:31→15:37)
[2017-09-01] MEDS ORDERED: clonazePAM 0.5 MG TAB PO PRN (07:26)
[2017-09-01 07:34] LABS: Creatine Kinase 53 U/L (55-170)
[2017-09-01 07:47] LABS: Creatine Kinase MB 0.8 ng/mL (0.0-2.4); Troponin I <0.012 ng/mL (0.000-0.034)
[2017-09-01 08:38] VITALS: RESP 16
[2017-09-01] MEDS ORDERED: ATORVASTATIN 80 MG TAB PO SCH (09:00)
[2017-09-01] MEDS ORDERED: CLOPIDOGREL 75 MG TAB PO SCH (09:00)
[2017-09-01] MEDS ORDERED: METOPROLOL TARTRATE 25 MG TAB PO SCH (09:00)
--- NOTE | 2017-09-01 11:35 | P.CRDCN ---
History of Present Illness Consult date: 09/01/17 Consult reason: chest pain History of present illness: Mr. Lima is a pleasant 66-year-old male past medical history significant for coronary artery disease with recent stenting of the circumflex artery and May 2018 and anxiety. He follows with Dr. Quiñonez in the office. We have been asked to see him in consultation for complaints of chest pain. He has been attending cardiac rehab regularly without incident. Yesterday he was exercising and he felt extremely diaphoretic worse than he has in the past. He asked the [place] if there is any changes in the EKG and they told him everything was unremarkable and he can continue exercising. He continued exercising and had no further symptoms. Later in the evening he was getting ready to go to sleep easily down and he felt what he describes as 3 beat sequence of palpitations in his chest followed by a tightening across the upper anterior chest wall from shoulder to shoulder. It is described as a tight/ numbing sensation. He woke up and took sublingual nitroglycerin 35 minutes apart. The pain went away 10 minutes after the third nitroglycerin. Of note he was placed on Klonopin presents primary care physician recently for anxiety after having this heart attack and he had been taking it as needed. It seemed that he was taking it more regularly and he decided 3 days ago that he was going to stop taking it to see how he fell. It has been 3 days since he has taken a Klonopin. He has followed up with Dr. Quiñonez in the office since his heart attack and he has undergone a low level stress test prior to beginning cardiac rehab as well as a Lexiscan stress test which was negative for reversible ischemia. EKG on arrival reveals sinus mechanism heart rate [address] or T-wave abnormalities. Chest x-ray is negative for acute cardiopulmonary process. Laboratory data reviewed, hemoglobin 14.7, potassium 4.0, creatinine 0.9, magnesium 2.2, cardiac enzymes negative 2. Current cardiac medications include Lopressor 25 mg twice a day, Plavix 75 mg daily, atorvastatin 80 mg daily and aspirin 325 mg daily. Most recent echocardiogram reveals preserved left ventricular systolic function with ejection fraction 55%. Cardiac catheterization performed May 2017 revealed left main artery is normal sized and free of stenosis, LAD shows mild plaque, circumflex artery with 90% lesion which was successfully stented, OM branch has a 70-80% ostial stenosis, RCA is nondominant with mild disease in the midportion. At that time circumflex artery was successfully stented with recommendations to maximize medical therapy and continue to monitor the OM lesion. Review of Systems At the time of my exam: CONSTITUTIONAL: Denies fever. Denies chills. EYES: Denies blurred vision. Denies vision changes. Denies eye pain. EARS, NOSE, MOUTH & THROAT: Denies headache. Denies sore throat. Denies ear pain. CARDIOVASCULAR: Denies chest pain. Denies shortness of breath. Denies orthopnea. Denies PND. Denies palpitations. RESPIRATORY: Denies cough. GASTROINTESTINAL: Denies abdominal pain. Denies diarrhea. Denies constipation. Denies nausea. Denies vomiting. MUSCULOSKELETAL: Denies myalgias. INTEGUMENTARY: Denies pruitis. Denies rash. NEUROLOGIC: Denies numbness. Denies tingling. Denies weakness. PSYCHIATRIC: Denies anxiety. Denies depression. ENDOCRINE: Denies fatigue. Denies weight change. Denies polydipsia. Denies polyurina. GENITOURINARY: Denies burning, hematuria or urgency with micturation. HEMATOLOGIC: Denies history of anemia. Denies bleeding. Past Medical History Past Medical History: Cancer, Eye Disorder, Myocardial Infarction ([place]), Prostate Disorder Additional Past Medical History / Comment(s): Basal cell skin cancer with removals, beginnings of bilateral macular degeneration, occasional vertigo, lactose intolerant, R inguinal pain when lying flat. Last Myocardial Infarction Date:: 05-24 History of Any Multi-Drug Resistant Organisms: None Reported Past Surgical History: Heart Catheterization With Stent, Orthopedic Surgery Additional Past Surgical History / Comment(s): Lumbar spine surgery, colonoscopy /benign polypectomy, R inguinal hernia repair, skin cancer removals. Past Anesthesia/Blood Transfusion Reactions: No Reported Reaction Date of Last Stent Placement:: 05-24-17 Smoking Status: Never smoker - Past Family History Mother Family Medical History: No Reported History Additional Family Medical History / Comment(s): Mother is healthy and 90yrs old. Father Additional Family Medical History / Comment(s): Father around age 55-65 with ruptured brain aneurysm. Medications and Allergies Home Medications Medication Instructions Recorded Confirmed Type Finasteride [Proscar] 5 mg PO DAILY 02/01/17 09/01/17 History Aspirin EC [Ecotrin] 325 mg PO DAILY 05/28/17 09/01/17 History Metoprolol Tartrate [Lopressor] 25 mg PO BID 05/28/17 09/01/17 History Nitroglycerin Sl Tabs [Nitrostat] 0.4 mg SL Q5M PRN 05/28/17 09/01/17 History Atorvastatin [Lipitor] 80 mg PO DAILY 09/01/17 09/01/17 History C,E,Zinc,Copper 11/Ucajg2m/Lut 1 tab PO DAILY 09/01/17 09/01/17 History [Ocuvite Adult 50 Plus Softgel] Clopidogrel [Plavix] 75 mg PO DAILY 09/01/17 09/01/17 History L.acidoph,Paracasei, B.lactis 1 cap PO Q48H 09/01/17 09/01/17 History [Probiotic] clonazePAM [KlonoPIN] 0.5 mg PO DAILY PRN 09/01/17 09/01/17 History Allergies Allergy/AdvReac Type Severity Reaction Status Date / Time lactose AdvReac Severe Unknown Verified 09/01/17 08:15 Physical Exam Vitals: Vital Signs Temp Pulse Pulse Resp BP BP Pulse Ox 09/01/17 03:38 18 09/01/17 03:33 97.8 F 53 L 17 112/67 96 09/01/17 01:52 98 F 09/01/17 01:39 60 19 133/78 96 09/01/17 00:27 49 L 08/31/17 23:42 97.6 F 51 L 18 130/75 95 Intake and Output 08/31/17 08/31/17 09/01/17 14:59 22:59 06:59 Other: # Voids 1 Weight 74.3 kg Blood pressure 128/79 heart rate 51 afebrile maintaining oxygen saturation on room air GENERAL: This is a 66-year-old male in no apparent distress at the time of my examination. HEENT: Head is atraumatic, normocephalic. Pupils are equal, round. Sclerae anicteric. Conjunctivae are clear. Mucous membranes of the mouth are moist. Neck is supple. There is no jugular venous distention. No carotid bruit is heard. LUNGS: Clear to auscultation no wheezes, rales or rhonchi. No chest wall tenderness is noted on palpation or with deep breathing. HEART: Regular rate and rhythm without murmurs, rubs or gallops. S1 and S2 heard. ABDOMEN: Soft, nontender. Bowel sounds are heard. No organomegaly noted. EXTREMITIES: No evidence of peripheral edema and no calf tenderness noted. VASCULAR: Radial and dorsalis pedis pulses palpated, no evidence of clubbing. NEUROLOGIC: Patient is awake, alert and oriented x3. Results 09/01/17 00:16 09/01/17 00:16 Cardiac Enzymes 09/01/17 09/01/17 Range/Units 00:16 00:16 AST 49 (17-59) U/L CK-MB (CK-2) 1.2 (0.0-2.4) ng/mL Troponin I <0.012 (0.000-0.034) ng/mL Coagulation 09/01/17 Range/Units 00:16 PT 10.4 (9.0-12.0) sec APTT 23.2 (22.0-30.0) sec CBC 09/01/17 Range/Units 00:16 WBC 9.8 (3.8-10.6) k/uL RBC 5.01 (4.30-5.90) m/uL Hgb 14.7 (13.0-17.5) gm/dL Hct 42.5 (39.0-53.0) % Plt Count 124 L (150-450) k/uL Comprehensive Metabolic Panel 09/01/17 Range/Units 00:16 Sodium 144 (137-145) mmol/L Potassium 4.0 (3.5-5.1) mmol/L Chloride 104 (98-107) mmol/L Carbon Dioxide 27 (22-30) mmol/L BUN 18 (9-20) mg/dL Creatinine 0.90 (0.66-1.25) mg/dL Glucose 98 (74-99) mg/dL Calcium 9.3 (8.4-10.2) mg/dL AST 49 (17-59) U/L ALT 71 (21-72) U/L Alkaline Phosphatase 101 (38-126) U/L Total Protein 6.6 (6.3-8.2) g/dL Albumin 4.2 (3.5-5.0) g/dL Current Medications Generic Name Dose Route Start Last Admin Trade Name Freq PRN Reason Stop Dose Admin Aspirin 325 mg 09/02/17 09:00 Aspirin PO DAILY [facility] Nitroglycerin 1 inch 09/01/17 06:00 09/01/17 05:31 Nitro-Bid Oint TOPICAL Not Given Q6HR [facility] Nitroglycerin 0.4 mg 09/01/17 01:37 Nitrostat SUBLINGUAL Q5M PRN Chest Pain Intake and Output 08/31/17 08/31/17 09/01/17 14:59 22:59 06:59 Other: # Voids 1 Weight 74.3 kg Patient Weight 09/01/17 06:59 Weight 74.3 kg 09/01/17 00:16 09/01/17 00:16 Assessment and Plan Assessment: ASSESSMENT 1. Chest pain, atypical. No EKG evidence of ischemia and negative cardiac enzymes. An acute coronary event has been ruled out. 2. History of anxiety with recent discontinuation of klonopin PLAN Increase activity and assess for any further symptoms of chest pain. Discussed with Dr. Quiñonez. Continue with plavix 75mg, aspirin 325mg, atorvastatin 80mg and lopressor 25mg BID. Discussion regarding continuation of anxiety decreasing techniques and medications as Stable from a cardiac perspective to follow up with Dr. Quiñonez in 2-3 weeks. Nurse Practitioner note has been reviewed, I agree with a documented findings and plan of care. Patient was seen and examined.
[2017-09-01 11:53] VITALS: BP 137/75; PULSE 50; TEMP 98.4
[2017-09-01 13:17] LABS: Creatine Kinase 51 U/L (55-170)
--- NOTE | 2017-09-01 13:22 | P.HPIM ---
History of Present Illness H&P Date: 09/01/17 Chief Complaint: Chest pain This is a 66-year-old gentleman with past medical history significant for coronary artery disease with prior stent placement to the circumflex, essential hypertension, mixed hyperlipidemia, and generalized anxiety disorder who presented to the emergency room with chest pain. Patient said that he has been attending cardiac rehab and is been doing fairly well until yesterday when he started having some discomfort in the left chest that was associated with diaphoresis. After he returned home he had another episode of what he describes as chest tightening across the upper anterior chest. Patient said that he took nitroglycerin 3 doses as directed with some relief. He then became more concerned and decided to come to the emergency room. In the emergency room, 12 leads EKG showed no acute ischemic changes. Patient was found to be in sinus bradycardia. Serial troponin were negative. Chest x- ray was unremarkable. Patient was placed on observation and was seen and evaluated by cardiology. He recently had a left heart catheterization in May 2017 showing nonobstructive coronary artery disease with patent stent to the circumflex. His chest pain was thought to be atypical in nature. He was cleared by cardiology for discharge. I would change his metoprolol dose to 12.5 mg twice daily given bradycardia and heart rate persistently in the low 50s. Patient will follow-up with me in cardiology in the office as directed. Review of Systems Review of system: 14 points review of systems were obtained and were negative except to what were mentioned in the HPI. Past Medical History Past Medical History: Cancer, Eye Disorder, Myocardial Infarction ([place]), Prostate Disorder Additional Past Medical History / Comment(s): Basal cell skin cancer with removals, beginnings of bilateral macular degeneration, occasional vertigo, lactose intolerant, R inguinal pain when lying flat. Last Myocardial Infarction Date:: 05-24 History of Any Multi-Drug Resistant Organisms: None Reported Past Surgical History: Heart Catheterization With Stent, Orthopedic Surgery Additional Past Surgical History / Comment(s): Lumbar spine surgery, colonoscopy /benign polypectomy, R inguinal hernia repair, skin cancer removals. Past Anesthesia/Blood Transfusion Reactions: No Reported Reaction Date of Last Stent Placement:: 05-24-17 Smoking Status: Never smoker - Past Family History Mother Family Medical History: No Reported History Additional Family Medical History / Comment(s): Mother is healthy and 90yrs old. Father Additional Family Medical History / Comment(s): Father around age 55-65 with ruptured brain aneurysm. Medications and Allergies Home Medications Medication Instructions Recorded Confirmed Type Finasteride [Proscar] 5 mg PO DAILY 02/01/17 09/01/17 History Aspirin EC [Ecotrin] 325 mg PO DAILY 05/28/17 09/01/17 History Metoprolol Tartrate [Lopressor] 25 mg PO BID 05/28/17 09/01/17 History Nitroglycerin Sl Tabs [Nitrostat] 0.4 mg SL Q5M PRN 05/28/17 09/01/17 History Atorvastatin [Lipitor] 80 mg PO DAILY 09/01/17 09/01/17 History C,E,Zinc,Copper 11/Ibgxw8g/Lut 1 tab PO DAILY 09/01/17 09/01/17 History [Ocuvite Adult 50 Plus Softgel] Clopidogrel [Plavix] 75 mg PO DAILY 09/01/17 09/01/17 History L.acidoph,Paracasei, B.lactis 1 cap PO Q48H 09/01/17 09/01/17 History [Probiotic] clonazePAM [KlonoPIN] 0.5 mg PO DAILY PRN 09/01/17 09/01/17 History Allergies Allergy/AdvReac Type Severity Reaction Status Date / Time lactose AdvReac Severe Unknown Verified 09/01/17 08:15 Physical Exam Vitals: Vital Signs Temp Pulse Pulse Pulse Resp BP BP 09/01/17 11:51 98.4 F 50 L 16 137/75 09/01/17 08:00 98 F 51 L 16 128/79 09/01/17 03:38 18 09/01/17 03:33 97.8 F 53 L 17 112/67 09/01/17 01:52 98 F 09/01/17 01:39 60 19 133/78 09/01/17 00:27 49 L 08/31/17 23:42 97.6 F 51 L 18 130/75 Pulse Ox 09/01/17 11:51 98 09/01/17 08:00 96 09/01/17 03:38 09/01/17 03:33 96 09/01/17 01:52 09/01/17 01:39 96 09/01/17 00:27 08/31/17 23:42 95 Intake and Output 08/31/17 09/01/17 09/01/17 22:59 06:59 14:59 Other: # Voids 1 Weight 74.3 kg General: The patient is awake and alert, in no distress Eye: there is normal conjunctiva bilaterally. Neck: The neck is supple, there is no JVD. Cardiovascular: Normal S1-S2, no S3-S4, no murmurs. Respiratory: Lungs clear to auscultation bilaterally Gastrointestinal: Abdomen is soft, nontender Musculoskeletal: There is no pedal edema. Neurological:. Speech is normal. Skin: Skin is warm and dry Results CBC & Chem 7: 09/01/17 00:16 09/01/17 00:16 Labs: Abnormal Lab Results - Last 24 Hours (Table) 09/01/17 09/01/17 Range/Units 00:16 06:51 Plt Count 124 L (150-450) k/uL Total Creatine Kinase 53 L (55-170) U/L Thrombosis Risk Factor Assmnt - Choose All That Apply Each Risk Factor Represents 2 Points: Age 61-74 years Thrombosis Risk Factor Assessment Total Risk Factor Score: 2 Thrombosis Risk Factor Assessment Level: Low Risk Assessment and Plan Assessment: This is a 66-year-old gentleman with past medical history significant for coronary artery disease with prior stent placement to the circumflex, essential hypertension, mixed hyperlipidemia, and generalized anxiety disorder who presented to the emergency room with chest pain. Patient said that he has been attending cardiac rehab and is been doing fairly well until yesterday when he started having some discomfort in the left chest that was associated with diaphoresis. After he returned home he had another episode of what he describes as chest tightening across the upper anterior chest. Patient said that he took nitroglycerin 3 doses as directed with some relief. He then became more concerned and decided to come to the emergency room. In the emergency room, 12 leads EKG showed no acute ischemic changes. Patient was found to be in sinus bradycardia. Serial troponin were negative. Chest x- ray was unremarkable. Patient was placed on observation and was seen and evaluated by cardiology. He recently had a left heart catheterization in May 2017 showing nonobstructive coronary artery disease with patent stent to the circumflex. His chest pain was thought to be atypical in nature. He was cleared by cardiology for discharge. I would change his metoprolol dose to 12.5 mg twice daily given bradycardia and heart rate persistently in the low 50s. Patient will follow-up with me in cardiology in the office as directed.
--- NOTE | 2017-09-01 13:23 | P.DS ---
Providers Date of admission: 09/01/17 01:37 Expected date of discharge: 09/01/17 Attending physician: Fransisco Shah Consults: 09/01/17 01:37 Consult Physician Urgent Consulting Provider: Lance Moe Consult Reason/Comments: cp Do you want consulting provider notified?: Yes Primary care physician: [facility] Course: This is a 66-year-old gentleman with past medical history significant for coronary artery disease with prior stent placement to the circumflex, essential hypertension, mixed hyperlipidemia, and generalized anxiety disorder who presented to the emergency room with chest pain. Patient said that he has been attending cardiac rehab and is been doing fairly well until yesterday when he started having some discomfort in the left chest that was associated with diaphoresis. After he returned home he had another episode of what he describes as chest tightening across the upper anterior chest. Patient said that he took nitroglycerin 3 doses as directed with some relief. He then became more concerned and decided to come to the emergency room. In the emergency room, 12 leads EKG showed no acute ischemic changes. Patient was found to be in sinus bradycardia. Serial troponin were negative. Chest x- ray was unremarkable. Patient was placed on observation and was seen and evaluated by cardiology. He recently had a left heart catheterization in May 2017 showing nonobstructive coronary artery disease with patent stent to the circumflex. His chest pain was thought to be atypical in nature. He was cleared by cardiology for discharge. I would change his metoprolol dose to 12.5 mg twice daily given bradycardia and heart rate persistently in the low 50s. Patient will follow-up with me in cardiology in the office as directed. Patient Condition at Discharge: Fair Plan - Discharge Summary New Discharge Prescriptions: Continue Finasteride [Proscar] 5 mg PO DAILY Nitroglycerin Sl Tabs [Nitrostat] 0.4 mg SL Q5M PRN PRN Reason: Chest Pain Aspirin EC [Ecotrin] 325 mg PO DAILY Clopidogrel [Plavix] 75 mg PO DAILY Atorvastatin [Lipitor] 80 mg PO DAILY clonazePAM [KlonoPIN] 0.5 mg PO DAILY PRN PRN Reason: Anxiety C,E,Zinc,Copper 11/Sbpcw3q/Lut [Ocuvite Adult 50 Plus Softgel] 1 tab PO DAILY Changed Metoprolol Tartrate [Lopressor] 12.5 mg PO BID #0 No Action L.acidoph,Paracasei, B.lactis [Probiotic] 1 cap PO Q48H Discharge Medication List Finasteride [Proscar] 5 mg PO DAILY 02/01/17 [History] Aspirin EC [Ecotrin] 325 mg PO DAILY 05/28/17 [History] Nitroglycerin Sl Tabs [Nitrostat] 0.4 mg SL Q5M PRN 05/28/17 [History] Atorvastatin [Lipitor] 80 mg PO DAILY 09/01/17 [History] C,E,Zinc,Copper 11/Vlzez2v/Lut [Ocuvite Adult 50 Plus Softgel] 1 tab PO DAILY [History] Clopidogrel [Plavix] 75 mg PO DAILY 09/01/17 [History] L.acidoph,Paracasei, B.lactis [Probiotic] 1 cap PO Q48H 09/01/17 [History] Metoprolol Tartrate [Lopressor] 12.5 mg PO BID #0 09/01/17 [Rx] clonazePAM [KlonoPIN] 0.5 mg PO DAILY PRN 09/01/17 [History] Follow up Appointment(s)/Referral(s): Fransisco Shah MD [Primary Care Provider] - 1-2 days Huseyin Quiñonez MD [STAFF PHYSICIAN] - 09/14/17 9:30 am Discharge Disposition: HOME SELF-CARE
[2017-09-01 13:29] LABS: Creatine Kinase MB 0.7 ng/mL (0.0-2.4); Troponin I <0.012 ng/mL (0.000-0.034)
[2017-09-02] MEDS ORDERED: ASPIRIN 325 MG TAB PO SCH (09:00)
== END 2017-09-01 14:42 | disposition home or self-care (01) ==
LOC: EC 23:39 → 3OBS 09-01 01:37
PROVIDERS: ADMIT Internal Medicine; ATTEND Internal Medicine
DX: R07.89 Other chest pain (principal); R00.1 Bradycardia, unspecified; I25.2 Old myocardial infarction; I10 Essential (primary) hypertension; R00.2 Palpitations; R42 Dizziness and giddiness; R61 Generalized hyperhidrosis; E78.2 Mixed hyperlipidemia; F41.1 Generalized anxiety disorder; I25.10 Atherosclerotic heart disease of native coronary artery without angina pectoris; N42.9 Disorder of prostate, unspecified; H35.30 Unspecified macular degeneration; E73.9 Lactose intolerance, unspecified; Z85.828 Personal history of other malignant neoplasm of skin; Z95.5 Presence of coronary angioplasty implant and graft; Z79.02 Long term (current) use of antithrombotics/antiplatelets; Z79.899 Other long term (current) drug therapy; Z79.82 Long term (current) use of aspirin
CPT/HCPCS: 99285; 36415; 93005; 80053; 82550; 82553; 83735; 84484; 85025; 85610; 85730; 71046; G0378

== ENCOUNTER 2018-04-15 00:08 | Observation (INO) | payer MEDICARE, OTHER ==
[2018-04-15] MEDS ORDERED: SODIUM CHLORIDE 0.9% 500 ML 500 ML IV STA (00:29)
[2018-04-15 00:46] LABS: Basophils # (A) 0.1 k/uL (0-0.2); Basophils % (A) 1 %; Eosinophils # (A) 0.3 k/uL (0-0.7); Eosinophils % (A) 3 %; HCT 45.2 % (39.0-53.0); HGB 14.6 gm/dL (13.0-17.5); Lymphocytes # (A) 2.4 k/uL (1.0-4.8); Lymphocytes % (A) 22 %; MCH 27.8 pg (25.0-35.0); MCHC 32.3 g/dL (31.0-37.0); MCV 86.2 fL (80.0-100.0); Monocytes # (A) 0.6 k/uL (0-1.0); Monocytes % (A) 6 %; Neutrophils # (A) 7.3 k/uL (1.3-7.7); Neutrophils % (A) 67 %; Platelet Count 146 k/uL (150-450); RBC 5.25 m/uL (4.30-5.90); RDW 13.4 % (11.5-15.5); WBC 10.8 k/uL (3.8-10.6)
[2018-04-15 00:55] LABS: INR 1.1 (<1.2); Partial Thromboplastin Time 22.8 sec (22.0-30.0); Prothrombin Time 10.3 sec (9.0-12.0)
[2018-04-15 00:57] LABS: ALT 89 U/L (21-72); AST 70 U/L (17-59); Albumin 4.4 g/dL (3.5-5.0); Alkaline Phosphatase 94 U/L (38-126); Anion Gap 7 mmol/L; Blood Urea Nitrogen 20 mg/dL (9-20); Calcium 9.4 mg/dL (8.4-10.2); Carbon Dioxide 27 mmol/L (22-30); Chloride 107 mmol/L (98-107); Glucose 132 mg/dL (74-99); Magnesium 2.3 mg/dL (1.6-2.3); Potassium 3.9 mmol/L (3.5-5.1); Sodium 141 mmol/L (137-145); Total Bilirubin 0.5 mg/dL (0.2-1.3); Total Protein 7.2 g/dL (6.3-8.2)
--- NOTE | 2018-04-15 01:03 | ED ---
Chest Pain HPI - General Source: patient, RN notes reviewed Mode of arrival: ambulatory Limitations: no limitations <Son Escobar - Last Filed: 04/15/18 01:40> <Gogo Banda - Last Filed: 04/15/18 23:56> - General Chief Complaint: Chest Pain Stated Complaint: arrhythmia Time Seen by Provider: 04/15/18 00:19 - History of Present Illness Initial Comments: 67-year-old male presents emergency Department chief complaint of palpitations, hypertension. Patient states that he attempted go to sleep around 10:30 states he certainly has left-sided noticed that his heart was racing and felt a pounding sensation. He states that he had one very sharp stabbing type pain. Patient states that he attempted to roll over to the other side states he did not feel any different site went downstairs and checked his blood pressure. Patient was found be hypertensive though he states he has no history. Patient does admit that he does take metoprolol which she was placed on after his last heart attack one year ago in which she had a stent placed. Patient states the symptoms feel different. Patient does admit that he takes a full dose aspirin daily along with a statin. Patient denies any current nausea, vomiting, shortness of breath, diaphoretic episodes, back pain (Son Escobar) - Related Data Home Medications Medication Instructions Recorded Confirmed Finasteride [Proscar] 5 mg PO DAILY 02/01/17 04/15/18 Aspirin EC [Ecotrin] 325 mg PO DAILY 05/28/17 04/15/18 Nitroglycerin Sl Tabs [Nitrostat] 0.4 mg SL Q5M PRN 05/28/17 04/15/18 C,E,Zinc,Copper 11/Nczbp2b/Lut 1 tab PO DAILY 09/01/17 04/15/18 [Ocuvite Adult 50 Plus Softgel] Clopidogrel [Plavix] 75 mg PO DAILY 09/01/17 04/15/18 L.acidoph,Paracasei, B.lactis 1 cap PO Q48H 09/01/17 04/15/18 [Probiotic] clonazePAM [KlonoPIN] 0.5 mg PO DAILY PRN 09/01/17 04/15/18 Atorvastatin [Lipitor] 40 mg PO HS 04/15/18 04/15/18 Ezetimibe 10 mg PO DAILY 04/15/18 04/15/18 Metoprolol Tartrate [Lopressor] 25 mg PO BID 04/15/18 04/15/18 Allergies Allergy/AdvReac Type Severity Reaction Status Date / Time lactose AdvReac Severe Unknown Verified 04/15/18 11:13 Review of Systems ROS Other: All systems not noted in ROS Statement are negative. <Son Escobar - Last Filed: 04/15/18 01:40> ROS Other: All systems not noted in ROS Statement are negative. <Gogo Banda - Last Filed: 04/15/18 23:56> ROS Statement: Those systems with pertinent positive or pertinent negative responses have been documented in the HPI. EKG Findings - EKG Comments: EKG Findings:: EKG performed at 0:23 normal sinus rhythm rate of 71 CT 168, QRS 104 QT/QTC 436/473 there is minimal depression V3 through V6 <Son Escobar - Last Filed: 04/15/18 01:40> Past Medical History Past Medical History: Cancer, Eye Disorder, Myocardial Infarction ([place]), Prostate Disorder Additional Past Medical History / Comment(s): Basal cell skin cancer with removals, beginnings of bilateral macular degeneration, occasional vertigo, lactose intolerant, R inguinal pain when lying flat. Last Myocardial Infarction Date:: 05-24 History of Any Multi-Drug Resistant Organisms: None Reported Past Surgical History: Heart Catheterization With Stent, Orthopedic Surgery Additional Past Surgical History / Comment(s): Lumbar spine surgery, colonoscopy /benign polypectomy, R inguinal hernia repair, skin cancer removals. Past Anesthesia/Blood Transfusion Reactions: No Reported Reaction Date of Last Stent Placement:: 05-24-17 Past Psychological History: No Psychological Hx Reported Smoking Status: Never smoker Past Alcohol Use History: None Reported Past Drug Use History: None Reported - Past Family History Mother Family Medical History: No Reported History Additional Family Medical History / Comment(s): Mother is healthy and 90yrs old. Father Additional Family Medical History / Comment(s): Father around age 55-65 with ruptured brain aneurysm. <Son Escobar - Last Filed: 04/15/18 01:40> General Exam Limitations: no limitations General appearance: alert, in no apparent distress Head exam: Present: atraumatic, normocephalic, normal inspection Respiratory exam: Present: normal lung sounds bilaterally. Absent: respiratory distress, wheezes, rales, rhonchi, stridor, chest wall tenderness Cardiovascular Exam: Present: regular rate, normal rhythm, normal heart sounds. Absent: systolic murmur, diastolic murmur, rubs, gallop, clicks GI/Abdominal exam: Present: soft, normal bowel sounds. Absent: distended, tenderness, guarding, rebound, rigid Extremities exam: Present: other (Pulses of extremities equal bilaterally) Neurological exam: Present: alert, oriented X3, CN II-XII intact, reflexes normal. Absent: motor sensory deficit Skin exam: Present: warm, dry, intact, normal color. Absent: rash <Son Escobar - Last Filed: 04/15/18 01:40> Vital Signs 04/15/18 04/15/18 04/15/18 00:14 01:01 03:51 Temperature 98.1 F 97.8 F Pulse Rate 74 69 Pulse Rate [ 53 L Pulse Oximetery ] Respiratory 20 18 16 Rate Blood Pressure 187/92 153/95 Blood Pressure 151/92 [Right Arm] O2 Sat by Pulse 99 99 99 Oximetry 04/15/18 08:00 Temperature 97.7 F Pulse Rate Pulse Rate [ 59 L Pulse Oximetery ] Respiratory 16 Rate Blood Pressure Blood Pressure 140/88 [Right Arm] O2 Sat by Pulse 97 Oximetry Chest Pain MDM <Son Escobar - Last Filed: 04/15/18 01:40> <Gogo Banda - Last Filed: 04/15/18 23:56> - [facility] Patient will be admitted to observation for chest pain, palpitations hypertension. Patient will be heparinized on low-dose repeat cardiac enzymes and cardiology consultation. (Son Escobar) I was available for consultation in the emergency department. The history and physical exam were done by the midlevel provider. I was consulted for this patient's care. I reviewed the case with the midlevel provider and based on their presentation of the patient, I agree with the assessment, medical decision making and plan of care as documented. Patient care was discussed with Dr. Rader who accepts the admission, and admission orders placed (Gogo Banda) Disposition <Son Escobar - Last Filed: 04/15/18 01:40> <Gogo Banda - Last Filed: 04/15/18 23:56> Clinical Impression: Chest pain, Palpitations, Hypertension, History of coronary artery stent placement Disposition: ADMITTED IP TO THIS HOSP Condition: Fair
[2018-04-15 01:12] LABS: Creatine Kinase 99 U/L (55-170)
--- NOTE | 2018-04-15 01:14 | XR ---
EXAMINATION TYPE: XR chest 2V DATE OF EXAM: 04/15/2018 COMPARISON: 09/01/2017 HISTORY: Chest pain TECHNIQUE: Frontal and lateral views of the chest are obtained. FINDINGS: Heart and mediastinum are normal. Lungs are clear. Diaphragm is normal. Bony thorax appear s normal. There are chest leads. IMPRESSION: Normal chest. No change.
[2018-04-15 01:25] LABS: Creatine Kinase MB 1.3 ng/mL (0.0-2.4); Troponin I <0.012 ng/mL (0.000-0.034)
[2018-04-15] MEDS ORDERED: HEPARIN SODIUM,PORCINE 5,000 UNIT/ML 1 ML VIAL IV ONE (01:41)
[2018-04-15] MEDS ORDERED: NITROGLYCERIN SL TABS 0.4 MG TAB SUBLINGUAL PRN (01:41)
[2018-04-15] MEDS ORDERED: clonazePAM 0.5 MG TAB PO PRN (01:42)
[2018-04-15] MEDS ORDERED: HEPARIN SOD,PORK IN 0.45% NACL 25,000 UNIT in 0.45% NACL 1 500ML.BAG IV SCH (01:45)
[2018-04-15 03:09] VITALS: BMI 22.1
[2018-04-15 06:33] LABS: Creatine Kinase 79 U/L (55-170)
[2018-04-15 06:47] LABS: Troponin I <0.012 ng/mL (0.000-0.034)
[2018-04-15] MEDS ORDERED: ATORVASTATIN 80 MG TAB PO SCH ×2 (09:00)
--- NOTE | 2018-04-15 09:59 | P.HPIM ---
History of Present Illness H&P Date: 04/15/18 Chief Complaint: Chest pain This is a 67-year-old male patient presented to emergency room with complaints of chest pain. Patient states he was playing golf about at 10:30 when he experienced his heart racing and felt a pounding sensation. Patient states that he rolled over to the other side and still experienced the pain. Patient then experienced a sharp pain to chest and coughed and the pain subsided. Patient states he also took his blood pressure and it was in the 180s which is very high for him. Patient has no past medical history heart catheterization with stent in May 2017. Additional medical history includes skin cancer, macular degeneration, prostate disorder and previous hernia repair. Chest x- ray completed showing normal chest. No change. EKG completed showing normal sinus rhythm normal EKG. Patient was started on heparin drip and cardiology services have been consulted. Troponins negative. At this time patient denies chest pain or shortness of breath. Patient denies nausea vomiting or diarrhea. Patient denies any urinary burning or frequency. Blood pressure 140/80. Review of Systems Please refer to HPI otherwise unremarkable Past Medical History Past Medical History: Cancer, Eye Disorder, Myocardial Infarction ([place]), Prostate Disorder Additional Past Medical History / Comment(s): Basal cell skin cancer with removals, beginnings of bilateral macular degeneration, occasional vertigo, lactose intolerant, R inguinal pain when lying flat. Last Myocardial Infarction Date:: 05-24 History of Any Multi-Drug Resistant Organisms: None Reported Past Surgical History: Heart Catheterization With Stent, Orthopedic Surgery Additional Past Surgical History / Comment(s): Lumbar spine surgery, colonoscopy /benign polypectomy, R inguinal hernia repair, skin cancer removals. Ulna nerve surgery Past Anesthesia/Blood Transfusion Reactions: No Reported Reaction Date of Last Stent Placement:: 05-24-17 Past Psychological History: No Psychological Hx Reported Additional Psychological History / Comment(s): Pt resides with significant other , Angeline. He is independent. Smoking Status: Never smoker Past Alcohol Use History: None Reported Past Drug Use History: None Reported - Past Family History Mother Family Medical History: No Reported History Additional Family Medical History / Comment(s): Mother is healthy and 90yrs old. Father Additional Family Medical History / Comment(s): Father around age 55-65 with ruptured brain aneurysm. Medications and Allergies Home Medications Medication Instructions Recorded Confirmed Type Finasteride [Proscar] 5 mg PO DAILY 02/01/17 04/15/18 History Aspirin EC [Ecotrin] 325 mg PO DAILY 05/28/17 04/15/18 History Nitroglycerin Sl Tabs [Nitrostat] 0.4 mg SL Q5M PRN 05/28/17 04/15/18 History Atorvastatin [Lipitor] 40 mg PO DAILY 09/01/17 04/15/18 History C,E,Zinc,Copper 11/Rzdob4n/Lut 1 tab PO DAILY 09/01/17 04/15/18 History [Ocuvite Adult 50 Plus Softgel] Clopidogrel [Plavix] 75 mg PO DAILY 09/01/17 04/15/18 History L.acidoph,Paracasei, B.lactis 1 cap PO Q48H 09/01/17 04/15/18 History [Probiotic] Metoprolol Tartrate [Lopressor] 12.5 mg PO BID #0 09/01/17 04/15/18 Rx clonazePAM [KlonoPIN] 0.5 mg PO DAILY PRN 09/01/17 04/15/18 History Ezetimibe 10 mg PO DAILY 04/15/18 04/15/18 History Allergies Allergy/AdvReac Type Severity Reaction Status Date / Time lactose AdvReac Severe Unknown Verified 04/15/18 07:17 Physical Exam Vitals: Vital Signs Temp Pulse Pulse Resp BP BP Pulse Ox 04/15/18 08:00 97.7 F 59 L 16 140/88 97 04/15/18 03:51 97.8 F 53 L 16 151/92 99 04/15/18 01:01 69 18 153/95 99 04/15/18 00:14 98.1 F 74 20 187/92 99 Intake and Output 04/14/18 04/15/18 04/15/18 22:59 06:59 14:59 Other: # Voids 1 Weight 73.9 kg Head normocephalic Neck supple Lungs clear to auscultation bilaterally no wheezing or crackles Heart regular rate and rhythm S1-S2, no rub or gallop Abdomen is soft nontender nondistended positive bowel sounds no hepatosplenomegaly Extremities no edema Neuro alert and orientated to 3 Results CBC & Chem 7: 04/15/18 00:30 04/15/18 00:30 Labs: Abnormal Lab Results - Last 24 Hours (Table) 04/15/18 04/15/18 Range/Units 00:30 00:30 WBC 10.8 H (3.8-10.6) k/uL Plt Count 146 L (150-450) k/uL Glucose 132 H (74-99) mg/dL AST 70 H (17-59) U/L ALT 89 H (21-72) U/L Thrombosis Risk Factor Assmnt - Choose All That Apply Each Risk Factor Represents 2 Points: Age 61-74 years Thrombosis Risk Factor Assessment Total Risk Factor Score: 2 Thrombosis Risk Factor Assessment Level: Low Risk Assessment and Plan Assessment: 1. Chest pain. Chest x-ray completed showing normal chest. No change. EKG completed showing normal sinus rhythm. Normal EKG. Troponins negative. Patient does have history of cardiac cath with stent. Patient started on heparin drip awaiting cardiology consult. 2. Elevated liver enzymes AST 70 and ALT 89. Repeat labs have been ordered. Patient does appear to have elevated liver enzymes in the past. 3. History of coronary artery disease with prior stent placement circumflex in May 2017. 4. Essential hypertension. Blood pressure on arrival to emergency room systolic 180. Patient is on Lopressor. Blood pressure improved to 140/88 5. Macular degeneration 6. History of hernia repair Time with Patient: Greater than 30 (Greater than 60% of the total time spent in counseling and coordination of care. I performed an examination of the patient and discussed their management with the Nurse Practitioner. I have reviewed the Nurse Practitioner's notes and agree with the documented findings and plan of care)
[2018-04-15 10:22] LABS: Basophils # (A) 0.1 k/uL (0-0.2); Basophils % (A) 1 %; Eosinophils # (A) 0.1 k/uL (0-0.7); Eosinophils % (A) 1 %; HCT 43.6 % (39.0-53.0); HGB 14.2 gm/dL (13.0-17.5); Lymphocytes # (A) 2.1 k/uL (1.0-4.8); Lymphocytes % (A) 21 %; MCHC 32.5 g/dL (31.0-37.0); MCV 86.2 fL (80.0-100.0); Mean Platelet Volume 9.5; Monocytes # (A) 0.5 k/uL (0-1.0); Monocytes % (A) 5 %; Neutrophils # (A) 7.2 k/uL (1.3-7.7); Neutrophils % (A) 72 %; Platelet Count 138 k/uL (150-450); RBC 5.06 m/uL (4.30-5.90); RDW 13.2 % (11.5-15.5)
[2018-04-15 10:24] LABS: ALT 87 U/L (21-72); AST 56 U/L (17-59); Alkaline Phosphatase 85 U/L (38-126); Anion Gap 6 mmol/L; Blood Urea Nitrogen 15 mg/dL (9-20); Calcium 9.1 mg/dL (8.4-10.2); Carbon Dioxide 27 mmol/L (22-30); Chloride 109 mmol/L (98-107); Glucose 98 mg/dL (74-99); Potassium 4.4 mmol/L (3.5-5.1); Sodium 142 mmol/L (137-145); Total Bilirubin 0.7 mg/dL (0.2-1.3); Total Protein 6.6 g/dL (6.3-8.2)
[2018-04-15] MEDS: METOPROLOL TARTRATE 25 MG TAB PO SCH ×2 (10:36→19:33)
[2018-04-15] MEDS: LOSARTAN 50 MG TAB PO SCH (10:36)
[2018-04-15] MEDS: FINASTERIDE 5 MG TAB PO SCH (10:37)
[2018-04-15 10:47] LABS: T4, Free (Free Thyroxine) 0.87 ng/dL (0.78-2.19)
--- NOTE | 2018-04-15 11:59 | CONS ---
CONSULTATION This patient's medical records and lab tests reviewed and the previous charts reviewed. This patient came with a complaint of heart fluttering and palpitations and then his blood pressure was high. Patient had some this sharp chest pain associated with a skipping of the heart beats. Patient is physically active. He has a previous history of myocardial infarction and stent to the circumflex coronary artery. The patient is regularly followed by Dr. Quiñonez. The patient has a history of hyperlipidemia. HOME MEDICATIONS: Include Plavix, probiotic, Klonopin, Proscar and Ecotrin, metoprolol 12.5 mg b.i.d. PAST MEDICAL HISTORY: Includes a history of basal cell skin cancer removed, right inguinal pain when patient is lying down. Previous cardiac catheterization and stent placement and orthopedic surgery. PHYSICAL EXAMINATION: Physical examination in the emergency room revealed the patient to be afebrile. Patient's heart rate was 74 per minute, oxygen saturation was 99%. The patient's HEENT examination is negative. Neck is supple. There is no increase in jugular venous pressure. Both the carotid pulses are felt. There is no bruit. Chest is symmetrical. Heart: The PMI is not felt. First and second heart sounds are normal. Lungs are clinically clear to auscultation and percussion. Abdomen is soft. Liver and spleen are not enlarged. Bowel sounds are heard. Extremities: Peripheral pulses are 2+. EKG shows normal sinus rhythm without any acute ischemic changes. The patient's troponins are normal. AST and ALT are noted. FINAL IMPRESSION: This patient is admitted with a heart fluttering and palpitations. No significant arrhythmias are noted. There is no evidence of any acute coronary syndrome. The patient has a moderately elevated blood pressure. We will start the patient on losartan 50 mg daily. Continue metoprolol 12.5 mg b.i.d. The patient will be ambulated. If no significant dysrhythmias are found, patient can be discharged home and have a event monitor a 15 day event monitor as an outpatient. MMCHANELL / IJN: [id number] /
[2018-04-15 13:21] LABS: Creatine Kinase 68 U/L (55-170)
[2018-04-15 13:34] LABS: Creatine Kinase MB 0.8 ng/mL (0.0-2.4); Troponin I <0.012 ng/mL (0.000-0.034)
[2018-04-15] MEDS ORDERED: amLODIPine 5 MG TAB PO STA (15:23)
[2018-04-16 06:23] LABS: Basophils # (A) 0.1 k/uL (0-0.2); Basophils % (A) 1 %; Eosinophils # (A) 0.2 k/uL (0-0.7); Eosinophils % (A) 2 %; HCT 43.7 % (39.0-53.0); HGB 14.5 gm/dL (13.0-17.5); Lymphocytes # (A) 2.5 k/uL (1.0-4.8); Lymphocytes % (A) 25 %; MCH 28.4 pg (25.0-35.0); MCHC 33.1 g/dL (31.0-37.0); MCV 85.9 fL (80.0-100.0); Mean Platelet Volume 9.2; Monocytes # (A) 0.5 k/uL (0-1.0); Monocytes % (A) 5 %; Neutrophils # (A) 6.4 k/uL (1.3-7.7); Neutrophils % (A) 65 %; Platelet Count 140 k/uL (150-450); RBC 5.09 m/uL (4.30-5.90); RDW 13.4 % (11.5-15.5); WBC 9.9 k/uL (3.8-10.6)
[2018-04-16 06:34] LABS: ALT 79 U/L (21-72); AST 53 U/L (17-59); Alkaline Phosphatase 73 U/L (38-126); Anion Gap 6 mmol/L; Blood Urea Nitrogen 14 mg/dL (9-20); Calcium 9.2 mg/dL (8.4-10.2); Carbon Dioxide 26 mmol/L (22-30); Chloride 108 mmol/L (98-107); Cholesterol 168 mg/dL (<200); Glucose 94 mg/dL (74-99); HDL Cholesterol 43 mg/dL (40-60); LDL Cholesterol,Calculated 80 mg/dL (0-99); Potassium 4.5 mmol/L (3.5-5.1); Sodium 140 mmol/L (137-145); Total Bilirubin 0.9 mg/dL (0.2-1.3); Total Protein 6.5 g/dL (6.3-8.2); Triglycerides 225 mg/dL (<150)
[2018-04-16] MEDS ORDERED: PANTOPRAZOLE 40 MG TABLET PO SCH (07:30)
[2018-04-16 08:01] VITALS: RESP 16
[2018-04-16] MEDS ORDERED: LACTOBACILLUS ACIDOPH & BULGAR 1 EACH PACKET PO SCH (09:00)
[2018-04-16] MEDS ORDERED: ASPIRIN 325 MG TAB PO SCH (09:00)
[2018-04-16] MEDS ORDERED: CLOPIDOGREL 75 MG TAB PO SCH (09:00)
[2018-04-16] MEDS ORDERED: EZETIMIBE 10 MG TAB PO SCH (09:00)
[2018-04-16 09:09] VITALS: PULSE 49
[2018-04-16] MEDS: METOPROLOL TARTRATE 25 MG TAB PO SCH (09:43)
[2018-04-16] MEDS: FINASTERIDE 5 MG TAB PO SCH (09:43)
[2018-04-16] MEDS: LOSARTAN 50 MG TAB PO SCH (09:43)
--- NOTE | 2018-04-16 10:55 | P.PN ---
Subjective This is a pleasant 67-year-old male past medical history significant for coronary artery disease s/p stenting to circumflex artery 05/2017 maintained on dual anti-Cardiac catheterization revealed 99% stenosis in the midportion circumflex artery, 70-80% stenosis of the ostial OM, he underwent angioplasty of the circumflex artery. He presented to the hospital with racing heart, "hard thumping in the chest" and intermittent palpitations. Blood pressure was also found to be elevated on arrival. He was started on losartan and blood pressure has come down nicely. This morning was 131/83 heart rate 49 afebrile and maintaining oxygen saturation on room air. No further symptoms of palpitations since admission. He states he was up walking he halls yesterday without incident. Laboratory data reviewed, hemoglobin 14.5, platelets 140, sodium 140 , potassium 4.5, creatinine 0.85, TSH 1.5 and free T4 0.87. Lipid panel reviewed, LDL 80 and HDL 43. GENERAL: Well-appearing, well-nourished and in no acute distress. NECK: Supple without JVD or thyromegaly. LUNGS: Breath sounds clear to auscultation bilaterally. Respiration equal and unlabored. No wheezes, rales or rhonchi. HEART: Regular rate and rhythm without murmurs, rubs or gallops. S1 and S2 heard. EXTREMITIES: Normal range of motion, no edema. No clubbing or cyanosis. Peripheral pulses intact. ASSESSMENT Palpitations Hypertension, uncontrolled. Improved with addition of losartan. History of coronary artery disease s/p angioplasty. Maintained on dual anti- platelet therapy Dyslipidemia PLAN Continue with current medical regimen. Obtain 2D echocardiogram and doppler study to assess cardiac structure and function. Apply 15-day event monitor, report to Dr. Quiñonez. Follow up in 3 weeks for results of event monitor. Advised him to keep a journal of his blood pressures and bring with him to follow up appointment with Dr. Quiñonez. Nurse Practitioner note has been reviewed, I agree with a documented findings and plan of care. Patient was seen and examined. Objective - Vital Signs Vital signs: Vital Signs Temp 98.2 F 04/16/18 08:00 Pulse 49 L 04/16/18 08:35 Resp 16 04/16/18 08:35 BP 131/83 04/16/18 08:00 Pulse Ox 97 04/16/18 08:00 Intake & Output 04/15/18 04/16/18 04/16/18 18:59 06:59 18:59 Other: Voiding Method Toilet Toilet # Voids 2 1 - Labs CBC & Chem 7: 04/16/18 05:55 04/16/18 05:55 Labs: Abnormal Lab Results - Last 24 Hours (Table) 04/15/18 04/15/18 04/15/18 Range/Units 09:24 09:24 09:24 Plt Count 138 L (150-450) k/uL APTT 37.6 H (22.0-30.0) sec Chloride 109 H (98-107) mmol/L ALT 87 H (21-72) U/L Triglycerides (<150) mg/dL 04/16/18 04/16/18 Range/Units 05:55 05:55 Plt Count 140 L (150-450) k/uL APTT (22.0-30.0) sec Chloride 108 H (98-107) mmol/L ALT 79 H (21-72) U/L Triglycerides 225 H (<150) mg/dL
[2018-04-16] MEDS ORDERED: ACETAMINOPHEN TAB 325 MG TAB PO STA (11:22)
[2018-04-16] MEDS ORDERED: VIT A,C & E-LUTEIN-MINERALS 1 EACH TAB PO SCH (12:00)
[2018-04-16 12:03] VITALS: BP 143/82; TEMP 98.4
--- NOTE | 2018-04-16 13:22 | P.DS ---
Providers Date of admission: 04/15/18 01:56 Expected date of discharge: 04/16/18 Attending physician: Geneva Rader Consults: 04/15/18 01:41 Consult Physician Urgent Consulting Provider: Trevor Morrison Consult Reason/Comments: chest pain Do you want consulting provider notified?: Yes Primary care physician: Geneva Rader [facility] Course: Discharge diagnosis 1. Chest pain. Chest x-ray completed showing normal chest. No change. EKG completed showing normal sinus rhythm. Normal EKG. Troponins negative. Patient does have history of cardiac cath with stent. Patient started on heparin drip awaiting cardiology consult. Discussed case with cardiology services patient will be DC'd with event monitor. Patient will also obtain 2-D echo prior to discharge. Patient will follow up with cardiology services in the weeks. Patient also advised to keep journal blood pressures and follow up with cardiology services 2. Elevated liver enzymes AST 70 and ALT 89. Repeat labs have been ordered. Patient does appear to have elevated liver enzymes in the past. Lipitor will be DC'd upon discharge. Patient maintained on Monday. Patient followed closely with primary care provider. CMP has been ordered for 2 days. 3. History of coronary artery disease with prior stent placement circumflex in May 2017. 4. Essential hypertension. Blood pressure on arrival to emergency room systolic 180. Patient is on Lopressor. Blood pressure improved to 140/88 5. Macular degeneration 6. History of hernia repair Hospital course This is a 67-year-old male patient presented to emergency room with complaints of chest pain. Patient states he was playing golf about at 10:30 when he experienced his heart racing and felt a pounding sensation. Patient states that he rolled over to the other side and still experienced the pain. Patient then experienced a sharp pain to chest and coughed and the pain subsided. Patient states he also took his blood pressure and it was in the 180s which is very high for him. Patient has no past medical history heart catheterization with stent in May 2017. Additional medical history includes skin cancer, macular degeneration, prostate disorder and previous hernia repair. Chest x- ray completed showing normal chest. No change. EKG completed showing normal sinus rhythm normal EKG. Patient was started on heparin drip and cardiology services have been consulted. Troponins negative. At this time patient denies chest pain or shortness of breath. Patient denies nausea vomiting or diarrhea. Patient denies any urinary burning or frequency. Blood pressure 140/80. On 04/16/2018 patient had an uneventful night. Patient denies chest pain or shortness of breath. Denies nausea vomiting or diarrhea. Patient denies any urinary burning or frequency. Patient to be DC'd with event monitor and follow up with cardiology services in 3 weeks. CMP ordered for 2 days. Patient to follow-up closely with cardiology and PCP I performed an examination of the patient and discussed their management with the Nurse Practitioner. I have reviewed the Nurse Practitioner's notes and agree with the documented findings and plan of care Patient Condition at Discharge: Stable Plan - Discharge Summary New Discharge Prescriptions: New Losartan [Cozaar] 50 mg PO DAILY #90 tab Continue Finasteride [Proscar] 5 mg PO DAILY Nitroglycerin Sl Tabs [Nitrostat] 0.4 mg SL Q5M PRN PRN Reason: Chest Pain Clopidogrel [Plavix] 75 mg PO DAILY clonazePAM [KlonoPIN] 0.5 mg PO DAILY PRN PRN Reason: Anxiety C,E,Zinc,Copper 11/Duggn9p/Lut [Ocuvite Adult 50 Plus Softgel] 1 tab PO DAILY L.acidoph,Paracasei, B.lactis [Probiotic] 1 cap PO Q48H Ezetimibe 10 mg PO DAILY Discontinued Aspirin EC [Ecotrin] 325 mg PO DAILY Atorvastatin [Lipitor] 40 mg PO HS No Action Metoprolol Tartrate [Lopressor] 25 mg PO BID Discharge Medication List Finasteride [Proscar] 5 mg PO DAILY 02/01/17 [History] Nitroglycerin Sl Tabs [Nitrostat] 0.4 mg SL Q5M PRN 05/28/17 [History] C,E,Zinc,Copper 11/Ijtey3j/Lut [Ocuvite Adult 50 Plus Softgel] 1 tab PO DAILY [History] Clopidogrel [Plavix] 75 mg PO DAILY 09/01/17 [History] L.acidoph,Paracasei, B.lactis [Probiotic] 1 cap PO Q48H 09/01/17 [History] clonazePAM [KlonoPIN] 0.5 mg PO DAILY PRN 09/01/17 [History] Ezetimibe 10 mg PO DAILY 04/15/18 [History] Metoprolol Tartrate [Lopressor] 25 mg PO BID 04/15/18 [History] Losartan [Cozaar] 50 mg PO DAILY #90 tab 04/16/18 [Rx] Follow up Appointment(s)/Referral(s): Geneva Rader MD [Primary Care Provider] - 1-2 days Huseyin Quiñonez MD [STAFF PHYSICIAN] - 3 Weeks Ambulatory/Diagnostic Orders: Comprehensive Metabolic Panel [LAB.AMB] Time Frame: 2 Days, Location: None Selected Patient Instructions/Handouts: Chest Pain (DC) Activity/Diet/Wound Care/Special Instructions: 15 day event monitor- wear as directed Discharge Disposition: HOME SELF-CARE
--- NOTE | 2018-04-16 13:26 | ECHOF ---
Referral Reason:palpitations, MEASUREMENTS -------- HEIGHT: 182.9 cm WEIGHT: 73.5 kg BP: RVIDd: 2.8 cm (< 3.3) IVSd: 1.1 cm (0.6 - 1.1) LVIDd: 4.9 cm (3.9 - 5.3) LVPWd: 1.0 cm (0.6 - 1.1) IVSs: 1.4 cm LVIDs: 3.4 cm LVPWs: 1.5 cm Ao Diam: 3.4 cm (2.0 - 3.7) AV Cusp: 1.3 cm (1.5 - 2.6) LA Diam: 3.1 cm (2.7 - 3.8) MV EXCURSION: 20.130 mm (> 18.000) MV EF SLOPE: 77 mm/s (70 - 150) EPSS: 0.9 cm MV E Akin: 0.49 m/s MV DecT: 302 ms MV A Akin: 0.54 m/s MV E/A Ratio: 0.90 FINDINGS -------- Sinus rhythm. This was a technically good study. LV size, wall thickness and systolic function are normal, with an EF greater than 55%. The left nicci tricular size is normal. The right ventricle is normal in size. The left atrial size is normal. The right atrial size is normal. The aortic valve is trileaflet, and appears structurally normal. No aortic stenosis or regurgitation. Mild mitral regurgitation is present. Mild tricuspid regurgitation present. There is no evidence of pulmonary hypertension. The right v entricular systolic pressure, as measured by Doppler, is {RVSP}. There is no pulmonic regurgitation present. The aortic root size is normal. There is no pericardial effusion. CONCLUSIONS -------- 1. LV size, wall thickness and systolic function are normal, with an EF greater than 55%. 2. The left ventricular size is normal. 3. The right ventricle is normal in size. 4. The left atrial size is normal. 5. The right atrial size is normal. 6. The aortic valve is trileaflet, and appears structurally normal. No aortic stenosis or regurgitati on. 7. Mild mitral regurgitation is present. 8. Mild tricuspid regurgitation present. 9. There is no evidence of pulmonary hypertension. 10. The right ventricular systolic pressure, as measured by Doppler, is {RVSP}. 11. There is no pulmonic regurgitation present. 12. The aortic root size is normal. 13. There is no pericardial effusion. BODY TECHNICIAN: Lavinia Ching RDCS
== END 2018-04-16 14:15 | disposition home or self-care (01) ==
LOC: EC 00:08 → 1SOBS 01:56
PROVIDERS: ADMIT Internal Medicine; ATTEND Internal Medicine
DX: R07.89 Other chest pain (principal); R00.2 Palpitations; H35.30 Unspecified macular degeneration; E78.5 Hyperlipidemia, unspecified; R74.8 Abnormal levels of other serum enzymes; I10 Essential (primary) hypertension; N42.9 Disorder of prostate, unspecified; I25.10 Atherosclerotic heart disease of native coronary artery without angina pectoris; I25.2 Old myocardial infarction; Z79.02 Long term (current) use of antithrombotics/antiplatelets; Z79.82 Long term (current) use of aspirin; Z85.828 Personal history of other malignant neoplasm of skin; Z95.5 Presence of coronary angioplasty implant and graft; Z98.890 Other specified postprocedural states
CPT/HCPCS: 96366 ×2; 96361; 96365; 96375; 99285; 36415; 93005 ×2; 93306; 93270; 93271; 84439; 80061; 80053 ×2; 84443; 82550; 82553; 83735; 84484; 85025 ×2; 85610; 85730; 71046; G0378 ×2; S0138 ×2; J1644 ×2

== ENCOUNTER → 2018-06-29 | Outpatient (CLI) | payer MEDICARE ==
[2018-06-29 16:15] LABS: ALT 65 U/L (10-49); AST 49 U/L (14-35)
== END | disposition home or self-care (01) ==
LOC: LABWHC1 07:58
PROVIDERS: ATTEND Internal Medicine Cardiovascular Disease
DX: E78.2 Mixed hyperlipidemia (principal)
CPT/HCPCS: 36415; 84450; 84460

== ENCOUNTER 2018-08-08 18:08 | Emergency (ER) | payer MEDICARE ==
[2018-08-08] MEDS ORDERED: SODIUM CHLORIDE 0.9% 1,000 ML IV STA (18:37)
[2018-08-08] MEDS ORDERED: ASPIRIN 81 MG PO STA (18:37)
--- NOTE | 2018-08-08 18:54 | XR ---
EXAMINATION TYPE: XR chest 2V DATE OF EXAM: 08/08/2018 COMPARISON: 04/15/2018 HISTORY: Chest pain TECHNIQUE: Frontal and lateral views of the chest are obtained. FINDINGS: There is suboptimal inspiration. There is some coarse lung markings in the lower lung fiel ds consistent with mild atelectasis. There is no heart failure. Heart size is normal. There are chest leads. There is no pleural effusion. IMPRESSION: There is new bilateral subsegmental atelectasis compared to old exam. Normal heart.
--- NOTE | 2018-08-08 18:59 | ED ---
Chest Pain HPI - General Chief Complaint: Chest Pain Stated Complaint: Chest pain Time Seen by Provider: 08/08/18 18:17 Source: patient, RN notes reviewed, old records reviewed Mode of arrival: ambulatory Limitations: no limitations - History of Present Illness Initial Comments: 67-year-old male presents emergency room in today with complaints of chest pain. Patient reports that he started to shake all over. Patient reports that his symptoms started 2 hours ago. He called his health sciences department chair Dr. Gilliland. Patient has a history of stenting. Patient states that he does suffer from anxiety. Recently starting CBD oil to help with his anxiety. Patient states that he has had no associated shortness of breath. He reports upon arrival here that his symptoms have diminished. He states he just has discomfort that would be a 1 or 0 out of 10. - Related Data Home Medications Medication Instructions Recorded Confirmed Finasteride [Proscar] 5 mg PO DAILY 02/01/17 08/08/18 Nitroglycerin Sl Tabs [Nitrostat] 0.4 mg SL Q5M PRN 05/28/17 08/08/18 C,E,Zinc,Copper 11/Whxmr2b/Lut 1 tab PO DAILY 09/01/17 08/08/18 [Ocuvite Adult 50 Plus Softgel] Aspirin EC [Ecotrin Low Dose] 81 mg PO DAILY 08/08/18 08/08/18 Losartan [Cozaar] 25 mg PO DAILY 08/08/18 08/08/18 Wheat Dextrin [Benefiber] 1 packet PO DAILY 08/08/18 08/08/18 Previous Rx's Medication Instructions Recorded Metoprolol Tartrate [Lopressor] 12.5 mg PO BID #60 tab 04/16/18 LORazepam [Ativan] 1 mg PO TID PRN 3 Days #9 tab 08/08/18 Allergies Allergy/AdvReac Type Severity Reaction Status Date / Time lactose AdvReac Severe Unknown Verified 08/08/18 18:41 Review of Systems ROS Statement: Those systems with pertinent positive or pertinent negative responses have been documented in the HPI. ROS Other: All systems not noted in ROS Statement are negative. EKG Findings - EKG Comments: EKG Findings:: EKG performed at 1833 shows normal sinus rhythm normal EKG. Ventricular rate of 61 bpm. Verbal is 162 ms. QS synagogue 90 ms. QT QTc is 4:30/432 ms. Past Medical History Past Medical History: Cancer, Eye Disorder, Myocardial Infarction ([place]), Prostate Disorder Additional Past Medical History / Comment(s): Basal cell skin cancer with removals, beginnings of bilateral macular degeneration, occasional vertigo, lactose intolerant, R inguinal pain when lying flat. Last Myocardial Infarction Date:: 05-24 History of Any Multi-Drug Resistant Organisms: None Reported Past Surgical History: Heart Catheterization With Stent, Orthopedic Surgery Additional Past Surgical History / Comment(s): Lumbar spine surgery, colonoscopy /benign polypectomy, R inguinal hernia repair, skin cancer removals. Ulna nerve surgery Past Anesthesia/Blood Transfusion Reactions: No Reported Reaction Date of Last Stent Placement:: 05-24-17 Past Psychological History: No Psychological Hx Reported Smoking Status: Never smoker Past Alcohol Use History: None Reported Past Drug Use History: None Reported - Past Family History Mother Family Medical History: No Reported History Additional Family Medical History / Comment(s): Mother is healthy and 90yrs old. Father Additional Family Medical History / Comment(s): Father around age 55-65 with ruptured brain aneurysm. General Exam - General Exam Comments Initial Comments: 67-year-old male. Alert and oriented. No significant distress. Patient appears anxious. Limitations: no limitations General appearance: alert, in no apparent distress Head exam: Present: atraumatic, normocephalic, normal inspection Eye exam: Present: normal appearance, PERRL, EOMI. Absent: scleral icterus, conjunctival injection, periorbital swelling ENT exam: Present: normal exam, mucous membranes moist Neck exam: Present: normal inspection. Absent: tenderness, meningismus, lymphadenopathy Respiratory exam: Present: normal lung sounds bilaterally. Absent: respiratory distress, wheezes, rales, rhonchi, stridor Cardiovascular Exam: Present: regular rate, normal rhythm, normal heart sounds. Absent: systolic murmur, diastolic murmur, rubs, gallop, clicks GI/Abdominal exam: Present: soft, normal bowel sounds. Absent: distended, tenderness, guarding, rebound, rigid Extremities exam: Present: normal inspection, full ROM, normal capillary refill. Absent: tenderness, pedal edema, joint swelling, calf tenderness Back exam: Present: normal inspection Neurological exam: Present: alert, oriented X3, CN II-XII intact Psychiatric exam: Present: normal affect, normal mood Skin exam: Present: warm, dry, intact, normal color. Absent: rash Course Vital Signs 08/08/18 08/08/18 18:11 19:50 Temperature 98.6 F 98.3 F Pulse Rate 62 61 Respiratory 16 18 Rate Blood Pressure 161/91 147/94 O2 Sat by Pulse 97 97 Oximetry Chest Pain MDM - MDM Patient is a 67 year old male with episode of racing heart rate, then causing body to shake, became anxious. Patient had a normal EKG and normal Troponin. EKG is normal. Patient has normal labs. Patient had a lengthy discussion with me with concern of panic attacks causing his symptoms. Patient has had a normal stress test outpatiently with Dr. Quiñonez 2 weeks ago. Patinet denies any pain at this time. Patient states that he does not want to be admitted. Patient wants to follow up with psych and will be DC with Rx for ativan for acute panic attacks. Discussed strict return parameters. Patient is agreeable to DC home. Disposition Clinical Impression: Anxiety, History of palpitations Disposition: HOME SELF-CARE Condition: Good Instructions (If sedation given, give patient instructions): Panic Attack (ED) Additional Instructions: Patient advised to have close follow-up with your primary care physician and her health sciences department chair. Patient can take the anxiety medicine as prescribed as needed for acute panic attacks. Patient to take one full or one half a tablet as needed. Patient should return to the emergency department if any alarming signs or symptoms occur. Prescriptions: LORazepam [Ativan] 1 mg PO TID PRN 3 Days #9 tab PRN Reason: Anxiety Is patient prescribed a controlled substance at d/c from ED?: Yes When asked, does pt state using other controlled substances?: No If prescribed controlled substance>3 days was MAPS reviewed?: Prescribed <3 Days Referrals: Daniella Chinchilla DO [Primary Care Provider] - 1-2 days Time of Disposition: 19:35
[2018-08-08 19:05] LABS: ALT 58 U/L (21-72); AST 38 U/L (17-59); Albumin 4.5 g/dL (3.5-5.0); Alkaline Phosphatase 100 U/L (38-126); Amylase 88 U/L (30-110); Anion Gap 9 mmol/L; Basophils # (A) 0.1 k/uL (0-0.2); Basophils % (A) 1 %; Blood Urea Nitrogen 17 mg/dL (9-20); Calcium 9.5 mg/dL (8.4-10.2); Carbon Dioxide 25 mmol/L (22-30); Chloride 107 mmol/L (98-107); Eosinophils # (A) 0.3 k/uL (0-0.7); Eosinophils % (A) 3 %; Glucose 104 mg/dL (74-99); HCT 45.8 % (39.0-53.0); HGB 15.1 gm/dL (13.0-17.5); Lipase 368 U/L (23-300); Lymphocytes # (A) 2.5 k/uL (1.0-4.8); Lymphocytes % (A) 27 %; MCH 28.4 pg (25.0-35.0); MCHC 32.9 g/dL (31.0-37.0); MCV 86.3 fL (80.0-100.0); Magnesium 2.2 mg/dL (1.6-2.3); Mean Platelet Volume 10.4; Monocytes # (A) 0.5 k/uL (0-1.0); Monocytes % (A) 5 %; Neutrophils # (A) 5.6 k/uL (1.3-7.7); Neutrophils % (A) 61 %; Platelet Count 126 k/uL (150-450); Potassium 4.3 mmol/L (3.5-5.1); RBC 5.31 m/uL (4.30-5.90); RDW 13.4 % (11.5-15.5); Sodium 141 mmol/L (137-145); Total Bilirubin 0.7 mg/dL (0.2-1.3); Total Protein 7.4 g/dL (6.3-8.2); WBC 9.2 k/uL (3.8-10.6)
[2018-08-08 19:14] LABS: INR 0.9 (<1.2); Partial Thromboplastin Time 23.3 sec (22.0-30.0); Prothrombin Time 10.2 sec (9.0-12.0)
[2018-08-08 20:02] VITALS: BP 147/94; PULSE 61; RESP 18; TEMP 98.3
== END 2018-08-08 19:51 | disposition home or self-care (01) ==
LOC: SUPCPDRO 18:08 → EC 18:08
DX: F41.9 Anxiety disorder, unspecified (principal); Z86.79 Personal history of other diseases of the circulatory system; R07.9 Chest pain, unspecified; N42.9 Disorder of prostate, unspecified; I25.2 Old myocardial infarction; Z91.018 Allergy to other foods; Z79.82 Long term (current) use of aspirin; Z79.899 Other long term (current) drug therapy; Z85.828 Personal history of other malignant neoplasm of skin; Z95.5 Presence of coronary angioplasty implant and graft; Z98.890 Other specified postprocedural states
CPT/HCPCS: 36415; 71046; 80053; 82150; 83690; 83735; 83880; 84484; 85025; 85610; 85730; 93005; 96360; 99285

== ENCOUNTER 2019-07-15 09:46 | Day surgery (SDC) | payer MEDICARE ==
[2019-07-12 10:01] VITALS: BMI 23.1
[~2019-07-15 09:46] MED LIST: LACTATED RINGERS 1,000 ML IV SCH
[2019-07-15 10:17] VITALS: TEMP 97.8
[2019-07-15] MEDS ORDERED: PROPOFOL 10 MG/ML 20 ML VIAL IV ONE (10:55)
--- NOTE | 2019-07-15 10:57 | P.GSHP ---
History of Present Illness H&P Date: 07/15/19 Chief Complaint: Constipation, right lower quadrant pain Is a 68-year-old male presents today for colonoscopy patient with right lower quadrant pain. He is also had complaints of constipation.. Past Medical History Past Medical History: Cancer, Eye Disorder, Hyperlipidemia, Hypertension, Myocardial Infarction ([place]), Prostate Disorder Additional Past Medical History / Comment(s): Basal cell skin cancer with removals, beginnings of bilateral macular degeneration, occasional vertigo, lactose intolerant, R inguinal pain when lying flat. Last Myocardial Infarction Date:: 05-24-17 History of Any Multi-Drug Resistant Organisms: None Reported Past Surgical History: Back Surgery, Heart Catheterization With Stent, Orthopedic Surgery Additional Past Surgical History / Comment(s): Lumbar spine surgery, colonoscopy/benign polypectomy, R inguinal hernia repair, skin cancer removals. Ulna nerve surgery Past Anesthesia/Blood Transfusion Reactions: No Reported Reaction Date of Last Stent Placement:: 05-24-17 Smoking Status: Never smoker - Past Family History Mother Family Medical History: No Reported History Additional Family Medical History / Comment(s): Mother is healthy and 90yrs old. Father Additional Family Medical History / Comment(s): Father around age 55-65 with ruptured brain aneurysm. Medications and Allergies Home Medications Medication Instructions Recorded Confirmed Type Finasteride [Proscar] 5 mg PO DAILY 02/01/17 07/15/19 History Nitroglycerin Sl Tabs [Nitrostat] 0.4 mg SL Q5M PRN 05/28/17 07/12/19 History C,E,Zinc,Copper 11/Ieach6z/Lut 1 tab PO DAILY 09/01/17 07/12/19 History [Ocuvite Adult 50 Plus Softgel] Aspirin EC [Ecotrin Low Dose] 81 mg PO DAILY 08/08/18 07/12/19 History LORazepam [Ativan] 1 mg PO TID PRN 3 Days #9 tab 08/08/18 07/15/19 Rx Lisinopril [Zestril] 5 mg PO 07/15/19 History Allergies Allergy/AdvReac Type Severity Reaction Status Date / Time lactose AdvReac Severe Unknown Verified 07/15/19 10:07 Surgical - Exam Vital Signs Temp Pulse Resp BP Pulse Ox 97.8 F 63 16 171/84 97 07/15/19 10:15 07/15/19 10:15 07/15/19 10:15 07/15/19 10:15 07/15/19 10:15 - General well developed, well nourished, no distress - Eyes PERRL - ENT normal pinna - Neck no masses - Respiratory normal expansion - Cardiovascular Rhythm: regular - Abdomen Abdomen: soft, non tender Assessment and Plan Assessment: Right Lower quadrant pain Constipation We'll perform colonoscopy.
--- NOTE | 2019-07-15 11:14 | P.OP ---
Date of Procedure: 07/15/19 Preoperative Diagnosis: Constipation Right lower quadrant pain Postoperative Diagnosis: Normal colon Procedure(s) Performed: Colonoscopy Anesthesia: MAC Surgeon: Rayray Brown Pathology: none sent Condition: stable Disposition: PACU Description of Procedure: PROCEDURE: The patient was placed on the endoscopy table in the lateral position. Digital rectal examination was performed which revealed no abnormalities. The prostate was symmetrical without nodules. Flexible colonoscope was then placed in the patient's anus and passed throughout the entire colon. The ileocecal valve was visualized. The cecum, ascending, transverse, descending and sigmoid colon were normal. The rectum was normal as well. There were no masses, polyps or diverticula noted in the entire colon. SUMMARY OF FINDINGS: Normal colonoscopy.
[2019-07-15 11:21] VITALS: PULSE 51
[2019-07-15 11:37] VITALS: BP 145/84; RESP 18
== END 2019-07-15 12:15 | disposition home or self-care (01) ==
LOC: ORWHC2ENDO 09:46
PROVIDERS: ATTEND Surgery
DX: K59.00 Constipation, unspecified (principal); R10.31 Right lower quadrant pain; H35.30 Unspecified macular degeneration; E78.5 Hyperlipidemia, unspecified; I10 Essential (primary) hypertension; I25.2 Old myocardial infarction; E73.9 Lactose intolerance, unspecified; I25.10 Atherosclerotic heart disease of native coronary artery without angina pectoris; Z85.828 Personal history of other malignant neoplasm of skin; Z87.438 Personal history of other diseases of male genital organs; Z98.890 Other specified postprocedural states; Z95.5 Presence of coronary angioplasty implant and graft; Z86.010 Personal history of colon polyps; Z79.899 Other long term (current) drug therapy; Z79.82 Long term (current) use of aspirin; Z97.2 Presence of dental prosthetic device (complete) (partial); Z79.02 Long term (current) use of antithrombotics/antiplatelets; Z82.49 Family history of ischemic heart disease and other diseases of the circulatory system
CPT/HCPCS: 45378; J2704

== ENCOUNTER → 2020-10-07 | Outpatient (CLI) | payer MEDICARE ==
--- NOTE | 2020-10-07 12:43 | FL ---
EXAMINATION TYPE: FL UGI air w small bowel DATE OF EXAM: 10/07/2020 COMPARISON: CTA aorta May 24, 2017 HISTORY: Right-sided and epigastric pain for one year. TECHNIQUE: A double contrast UGI study is performed with small bowel follow through. A total of 1 mi nute 12 seconds of fluoroscopic time was utilized during procedure. 65 spot images are saved to PACS. FINDINGS: Ship'S Pilot image of the abdomen shows no gross abnormality. The esophagus shows normal motility and emptying into the stomach. No evidence of fixed hiatal herni a or stricture noted. The stomach shows normal distensibility, peristalsis, and mucosal folds. No evidence of any focal in traluminal mass or ulcer disease. Mild distal gastroesophageal reflux was seen during real time perfo rmance of this study. The duodenal bulb and sweep are unremarkable. The small bowel study shows normal transit to the colon in less than 60 minutes. There is normal muc osal fold pattern throughout the small bowel. There is no evidence of any stricture or filling defec t noted. The terminal ileum is unremarkable. IMPRESSION: Mild distal gastroesophageal reflux otherwise unremarkable study.
== END | disposition home or self-care (01) ==
LOC: RADFLMAIN 08:55
PROVIDERS: ATTEND Family Medicine
DX: K21.9 Gastro-esophageal reflux disease without esophagitis (principal)
CPT/HCPCS: 74240; 74248

== ENCOUNTER → 2023-02-01 | Outpatient (CLI) | payer MEDICARE ==
--- NOTE | 2023-02-01 14:14 | XR ---
EXAMINATION TYPE: XR cervical spine limited DATE OF EXAM: 02/01/2023 COMPARISON: NONE HISTORY: Pain TECHNIQUE: Three views are submitted. FINDINGS: The odontoid is intact. There are no compression deformities. The prevertebral soft tissue structur es are within normal limits. Multilevel facet arthropathy and degenerative changes with severe robles es C5-6 and C6-C7. There is posterior spondylosis. Calcifications soft tissue neck likely related to carotid artery. IMPRESSION: 1. Multilevel severe degenerative disc disease and facet arthropathy. Recommend follow-up MRI..
== END ==
LOC: PNWHC3 10:06
PROVIDERS: ATTEND Anesthesiology
DX: M50.322 Other cervical disc degeneration at C5-C6 level (principal); M50.323 Other cervical disc degeneration at C6-C7 level; M47.812 Spondylosis without myelopathy or radiculopathy, cervical region; I10 Essential (primary) hypertension; E78.5 Hyperlipidemia, unspecified; N40.0 Benign prostatic hyperplasia without lower urinary tract symptoms; Z91.011 Allergy to milk products; Z79.899 Other long term (current) drug therapy
CPT/HCPCS: 72040; 99211

== ENCOUNTER → 2023-02-11 | Outpatient (CLI) | payer MEDICARE ==
--- NOTE | 2023-02-13 10:31 | MR ---
EXAMINATION TYPE: MR cervical spine wo con DATE OF EXAM: 02/11/2023 COMPARISON: None HISTORY: Neck pain for 2 years that radiates down right arm, headaches. CONTRAST: Performed utilizing 0 mL intravenous Gadavist gadolinium contrast. TECHNIQUE: Multiplanar multiecho imaging on a 3.0 Sarah magnet is performed through the cervical spin e. FINDINGS: The craniovertebral junction is normal. Vertebral body alignment is normal. Disc space n arrowing is present throughout the cervical spine greater C3-4 through C6-7. C7-T1: No focal disc herniation or significant disc bulge is evident. No spinal canal stenosis or n eural foraminal stenosis is present. C6-7: No focal disc herniation or significant disc bulge is evident. No spinal canal stenosis or indra ral foraminal stenosis is present. C5-6: Broad-based disc bulge has mild anterior thecal sac compression. This is slightly greater in th e central region. This may has anterior cord contact without cord deformity. No AP spinal canal steno sis is present. There is moderate bilateral foraminal stenosis. C4-5: Mild central left paracentral disc bulge is present with mild anterior thecal sac compression. Cord contact may be present. No AP spinal canal stenosis. Bilateral foraminal stenosis is present.. C3-4: Mild disc bulge is anterior thecal sac contact. No cord contact. No Spinal stenosis. Moderate b ilateral foraminal stenosis is present. C2-3: No focal disc herniation or significant disc bulge is evident. No spinal canal stenosis or indra ral foraminal stenosis is present. IMPRESSION: 1. Broad-based disc bulge C5-6 with mild anterior thecal sac compression with anterior cord contact. 2. Mild central disc bulge at C4-5 with cord contact. 3. Mild disc bulge C3-4 without cord contact. 4. Foraminal stenosis C3-4 through C5-6 discussed above.
== END | disposition home or self-care (01) ==
LOC: RADMRIMAIN 14:52
PROVIDERS: ATTEND Specialist
DX: M99.71 Connective tissue and disc stenosis of intervertebral foramina of cervical region (principal); M50.31 Other cervical disc degeneration, high cervical region; R51.9 Headache, unspecified
CPT/HCPCS: 72141